=== PATIENT | female | born 1940 | race Caucasian/White ===

== ENCOUNTER 2018-04-19 09:17 | Inpatient (IN) | payer MEDICARE, OTHER ==
[2018-04-19] MEDS ORDERED: Pantoprazole 40 MG VIAL ONE (09:51)
[2018-04-19 09:54] LABS: #Lymphocytes 0.6 thou/uL (1.20-3.40); #Monocytes 1.2 thou/uL (0.11-0.59); #Neutrophils 10.1 thou/uL (1.40-6.50); %Basophils 0.4 % (0.0-1.0); %Eosinophils 0.2 % (0.0-10.0); %Lymphocytes 4.6 % (21.0-51.0); %Neutrophils 84.9 % (42.0-75.0); Hemoglobin 15.1 g/dL (12.0-16.0); Mean Corpuscular HGB CONC 33.6 g/dL (32.0-36.0); Mean Corpuscular Hemoglobin 31.7 pg (27.0-31.0); Mean Corpuscular Volume 94.5 fL (78.0-98.0); Mean Platelet Volume 8.1 fL (7.4-10.4); Platelet Count 234 thou/uL (130-400); RBC Distribution Width 12.2 % (11.5-14.5); Red Blood Cell (RBC) Count 4.77 mill/uL (4.20-5.40); White Blood Cell (WBC) Count 11.8 thou/uL (4.8-10.8)
[2018-04-19 09:56] LABS: PTT 25.2 SEC (22.9-36.1); Prothrombin Time 13.2 SEC (12.0-14.7)
--- NOTE | 2018-04-19 10:00 | RAD ---
CHEST 1 VIEW: HISTORY: Nausea and vomiting. Coffee grounds emesis. COMPARISON: CT of 11/09/2016. FINDINGS: Large sliding hiatal hernia. There is compressive atelectasis in the lingula. No pneumothorax. Sev ere degenerative change in the left shoulder. IMPRESSION: Chronic changes. No acute abnormality. POS: [facility]
[2018-04-19 10:12] LABS: ALT (SGPT) 12 U/L (8-55); AST (SGOT) 22 U/L (5-34); Albumin 4.4 g/dL (3.4-4.8); Alkaline Phosphatase 99 U/L (40-150); Anion Gap 18 mmol/L (10-20); BUN (Urea Nitrogen) 13 mg/dL (9.8-20.1); Bilirubin, Total 0.7 mg/dL (0.2-1.2); CK (CPK) 72 U/L (29-168); Calc. Creatinine Clearance 0 mL/min (70-130); Calcium 10.1 mg/dL (7.8-10.44); Carbon Dioxide 33 mmol/L (23-31); Chloride 92 mmol/L (98-107); Estimated GFR-MDRD 63; Globulin 3.1 g/dL (2.4-3.5); Glucose 126 mg/dL (83-110); Lipase 59 U/L (8-78); Protein, Total 7.5 g/dL (6.0-8.3); Sodium 140 mmol/L (136-145)
[2018-04-19 10:15] LABS: CKMB 1.9 ng/mL (0-6.6); Troponin I Less than 0.010 ng/mL (< 0.028)
[2018-04-19 10:16] LABS: Potassium 2.8 mmol/L (3.5-5.1)
[2018-04-19] MEDS ORDERED: Benzocaine 20% Spray 60 ML CAN ONE (10:39)
--- NOTE | 2018-04-19 11:25 | RAD ---
CHEST 1 VIEW: HISTORY: Chest pain. Nasogastric tube placement. COMPARISON: Earlier exam on the same dates. FINDINGS: Nasogastric tube at the lower mid mediastinum is likely within the large hiatal hernia. Findings are otherwise stable. POS: [facility]
[2018-04-19] MEDS ORDERED: Ondansetron ODT 4 MG TAB PO PRN (13:31)
[2018-04-19] MEDS ORDERED: Albuterol Sulfate 1.25 MG/3 ML NEB NEB PRN (13:36)
[2018-04-19] MEDS ORDERED: Potassium Chloride 40 MEQ in Premix Bag 1 BAG IVPB SCH (14:00)
[2018-04-19 14:44] VITALS: BMI 23.8
[2018-04-19] MEDS: Sodium Chloride 0.9% 1,000 ML IV SCH (16:00)
[2018-04-19] MEDS: Potassium Chloride 20 MEQ in Premix Bag 1 BAG IVPB SCH ×2 (16:01→22:22)
[2018-04-19] MEDS ORDERED: hydrALAZINE 20 MG/ML VIAL SLOW IVP PRN (17:49)
--- NOTE | 2018-04-19 21:00 | HP ---
CHIEF COMPLAINT: Vomiting. HISTORY OF PRESENT ILLNESS: The patient is a 77-year-old female who has apparently a known history o f a large hiatal hernia. The patient has had episodes in the past of intractable nausea and vomiting . She has been seen at the [facility] Emergency Room on several occasions and has not been give n much information regarding her situation. She subsequently went [facility] with one of these e pisodes a year and a half ago. At that time, she was diagnosed with a large hiatal hernia and reflux . She reports that she subsequently modified her diet substantially and was able to avoid this for t he last year and a half. She does report that she has had upper endoscopy at [facility] within the last year and nothing was found other than the large hiatal hernia. She has had surgery recommen ded for her; however, she is concerned that the surgery would not hold and that she would be back in the same situation again, therefore she has chosen not to have the surgery. On this occasion, the patient reports she was doing fine until yesterday early afternoon. She went t o [employer] and had some type of wyatt topping that she believes may have some citric acid in it. She bel ieves that might have triggered her episode because of her reflux. Regardless, she left there went t o [employer] and when she was leaving had a near syncopal episode and then started vomiting frequently. She finally made at home, but continued to have vomiting throughout the remainder of the day and thro ugh the night. Today, the symptoms actually got worse and eventually she started seeing some blood i n her emesis and she presented via the emergency department. She had an NG tube placed at that time. She has not had any vomiting since. She does report that she has had some generalized crampy abdom inal pain. She also reports chronic diarrhea. REVIEW OF SYSTEMS: Notable for the above-mentioned chronic diarrhea. She also has some hoarseness a nd weak voice associated with this particular episode, but she has not had it in the past. She also reports some chronic anosmia. PAST MEDICAL HISTORY: Notable for numerous allergies, summer drugs and some she describes as "chemic al allergies." She has osteoporosis, asthma, hypothyroidism, hyperlipidemia, and a history of the ab ove-mentioned hiatal hernia and reflux. She also has a history of colon polyps. PAST SURGICAL HISTORY: Colonic polypectomy, partial hysterectomy, cataractectomy, right lower extrem ity fracture, presumably ORIF, sinus procedure and a procedure on the coccyx which apparently was jen e type of calcification related to prior coccygeal fracture. FAMILY HISTORY: Father had a "colon tumor." Mother had CHF and emphysema. SOCIAL HISTORY: Patient denies alcohol, tobacco, or drugs. She is . She is a F[employer] and she has a living will that has identified a power of environmental attorney, which is not her son. CURRENT MEDICATIONS: Levothyroxine 75 mcg 1 p.o. daily, dipyridamole 75 mg every day, pentoxifylline 400 mg daily, prednisone 1 mg daily, omeprazole 20 mg every day, montelukast 10 mg daily, atorvastat in 20 mg every day, Nasonex 50 mcg every day, albuterol inhaler p.r.n., gabapentin 300 mg t.i.d., vit bryson D3 of 1000 mg every day, vitamin E 400 units every day, calcium with vitamin D. ALLERGIES: Include ASPIRIN, CODEINE, DARVON, ETHYLENEDIAMINE, IODINE, LANOLIN, NEOMYCIN, SULFA, TETR ACYCLINE and THIMEROSAL. PHYSICAL EXAMINATION: VITAL SIGNS: BP 162/86, pulse 100, respirations 24. She is afebrile. GENERAL APPEARANCE: Age appropriate female. She is in no distress. She does have some hoarseness a nd very a weak voice. She has an NG tube in place. HEENT: Pupils are equal and reactive. She has no OP lesions. LUNGS: Clear bilaterally. ABDOMEN: Soft, nontender, positive bowel sounds. EXTREMITIES: They are cool, but dry. Peripheral pulses are diminished. LABORATORY DATA: White blood cell count 11.8, hemoglobin 15.1, platelets 234. Coags are normal. So dium 140, potassium 2.8, chloride 92, CO2 of 33, BUN 13, creatinine 0.87, glucose 126, calcium 10.1. AST is 22, ALT is 12. Troponin less than 0.01. BNP 166.9, albumin 4.4, lipase 59. Stool for occul t blood is negative. Chest x-ray only reveals the large sliding hiatal hernia. ASSESSMENT AND PLAN: 1. Intractable nausea and vomiting. This appears to be a recurrent problem and appears to be relate d to her large sliding hiatal hernia likely producing some level of obstruction. The patient underst ands that surgery is the only way to resolve this, but she has not made the choice to pursue that as of yet. She had an NG tube placed and that continues with low wall suction and thus far has resolved her vomiting issue. 2. Hematemesis. The patient has hematemesis, but denies any melena or hematochezia and her Hemoccul t is negative. This appears as though it is related to her recurrent vomiting and may represent a sm all Armida-Whitmore tear or even some type of Greg's erosions. We will keep her on a PPI. GI has jose angel pacheco consulted. 3. Hypokalemia, likely secondary to vomiting. Potassium supplementation orders have been given to yohannes newsome ER nurse. 4. Elevated blood pressure. The patient does not carry a diagnosis of hypertension. We will contin ue to monitor and treat as needed. 5. Hypothyroidism. We will hold on her thyroid medications while she is n.p.o. 6. History of asthma. We will maintain p.r.n. nebulizer treatments as needed. 7. The patient will not have deep venous thrombosis prophylaxis at the moment because she has some e vidence of peripheral vascular disease with poor circulation and she has active bleeding.
[2018-04-19] MEDS: Pantoprazole 40 MG VIAL IVP SCH (22:13)
--- NOTE | 2018-04-20 00:16 | CON ---
DATE OF CONSULTATION: 04/19/2018 REFERRING PHYSICIAN: Dr. Hugo Schmitt, [facility]. REASON FOR CONSULTATION: Abdominal pain, nausea, and vomiting blood. HISTORY OF PRESENT ILLNESS: Ms. Charleen Villagomez is a very pleasant 77-year-old fragile-looking female hospitalized to the ER this afternoon. The patient came to the ER with abdominal pain, nausea, and vomiting. While in the ER, she had retching and she vomited 2 times fresh blood. She had a CBC done and surprisingly, she had a normal blood count. The CBC on admission to the ER was 11.1, hematocrit 45.1. She had an NG tube placed in the ER. The NG tube is draining some fresh blood, but not a whole lot of things coming out, and from the look of it, it appears she probably had little difficulty in putting NG tube. It was more traumatic than actual GI bleeding. The patient has had no black tarry stool. The patient's bowel movements are regular. She has loose stools and she has 1 or 2 stool every day. The patient apparently has had symptoms of abdominal pain, nausea, and vomiting and was seen in the ER in 04/2017. She had a CAT scan of abdomen and chest, which revealed a very large hiatus hernia and most of the upper part of stomach was in the chest. The patient apparently has seen Dr. Elton Denton in [facility] in [place]. She had an EGD done and was told to have large hiatus hernia and also esophagitis. She was placed on Prilosec. She was also advised about antireflux measures. It appeared that Dr. Denton recommended her to have surgery, but the patient did not want to have surgery. She had not seen a surgeon at that time. Apparently, the symptom has been going on off and on for several years. She tells me that since she has been on the Prilosec and all antireflux measures, she has had no nausea or vomiting. She did see Dr. Raj Mock, who is her regular family doctor yesterday for . However, this morning, she developed abdominal pain, which was in the epigastric area with retching, nausea, and vomiting. Apparently, she vomited 3 times. The first vomiting did not have any blood. The second vomiting in the ER had some blood. The patient at the present time appears very comfortable. She is in no acute distress. The patient has epigastric abdominal discomfort since this morning. The pain is [id number]. She has no history of dysphagia or odynophagia. She has had a colonoscopy in [address] Denton for cancer screening. Apparently, her father had colon cancer and she had an EGD in 2017, at the same time, she had a colonoscopy which was told to be negative. She has no relevant history. ALLERGIES: Multiple and include ASPIRIN, CODEINE, IODINE, LANOLIN, NEOMYCIN, ETHYLENEDIAMINE. SOCIAL HISTORY: The patient lives with her disabled son. She does not smoke or drink alcohol. MEDICAL ILLNESSES: 1. Hypothyroidism. 2. Osteoporosis. 3. Allergic rhinitis. 4. Hiatus hernia. 5. Acid reflux. MEDICATIONS: List reviewed. FAMILY HISTORY: Father had colon cancer. REVIEW OF SYSTEMS: Ten-point system reviewed. Constitutional: No history of fever, no night sweats. Has good appetite and good energy level. No history of any weight loss. HEENT: Vision is good and hearing is good. No epistaxis. Throat, no sore throat or any painful swallowing. Respiratory System: No history of chronic cough, hemoptysis, dyspnea. Cardiovascular System: No chest pain or palpitation. No exertional dyspnea, orthopnea, or PND. Gastrointestinal: History of hiatus hernia and acid reflux. History of nausea and vomiting off and on. She is also having loose stools. Genitourinary: No dysuria, hematuria. Musculoskeletal: Unremarkable. Endocrine: Unremarkable. Hematologic: Unremarkable. SURGERIES: 1. Partial hysterectomy. 2. History of fractured right leg with some surgery in the past. PHYSICAL EXAMINATION: GENERAL: This is a very thin built, very pleasant, female who appears very comfortable. She is in no distress. VITAL SIGNS: Afebrile, pulse is 84, blood pressure 182/85. HEENT: Conjunctivae clear. NECK: Supple. No adenitis or thyromegaly noted. CARDIOVASCULAR SYSTEM: First and second heart sounds normal. LUNGS: Clear to auscultation. ABDOMEN: Abdomen is soft to palpate. Abdomen is nondistended. Abdomen is flat. Abdomen exam shows mild tenderness over the epigastric area. There is no rebound or guarding. No masses. No organomegaly. EXTREMITIES: Revealed no edema. LABORATORY DATA: Shows normal CBC. WBC 11,800, hemoglobin is 15.1, hematocrit 42.1, MCV 94.5, platelet count is 234,000, polymorphs 84, lymphocytes 4, monocytes 10. Serum chemistries: Sodium is 140, potassium 2.8, chloride 192, bicarbonate 33, BUN is 13, creatinine 0.87, glucose 126, calcium 10.1, bilirubin 0.7, AST 22, ALT 12, alkaline phosphatase 99, creatine kinase is 72. CPK-MB 1.9, BNP 166.9, albumin is 4.4. CLINICAL IMPRESSION: 1. A 77-year-old female with abdominal pain, retching, nausea, and vomiting. She had vomited small amount of blood. She has normal CBC. She has had history of hiatus hernia with similar episodes of abdominal pain, nausea, and vomiting. She has a very large hiatus hernia on CAT scan in 2017 and she does not want to have surgery. The patient most likely has gastric volvulus, which could happen in large hiatus hernia. At the present time, her abdomen is benign. There is no rebound or guarding. 2. Hypokalemia. 3. Hypothyroidism. 4. Chronic acid reflux. 5. Osteoporosis. 6. Allergic rhinitis. RECOMMENDATIONS: 1. The NG tube is really not draining very much fluid and the blood appears to be most likely from the NG tube insertion for bleeding. Recommend discontinue NG tube. 2. Keep her n.p.o. 3. Follow up H&H. 4. Correction of hypokalemia with potassium supplement. 5. EGD tomorrow morning. I did talk to Leona Arcealyssa and she has agreed for the procedure. I will make further recommendations after EGD. [facility]
[2018-04-20 05:19] LABS: #Lymphocytes 0.7 thou/uL (1.20-3.40); #Monocytes 1.6 thou/uL (0.11-0.59); #Neutrophils 9.9 thou/uL (1.40-6.50); %Basophils 0.1 % (0.0-1.0); %Lymphocytes 5.6 % (21.0-51.0); %Monocytes 13.3 % (0.0-10.0); Hemoglobin 14.2 g/dL (12.0-16.0); Mean Corpuscular HGB CONC 32.5 g/dL (32.0-36.0); Mean Corpuscular Hemoglobin 30.8 pg (27.0-31.0); Mean Corpuscular Volume 94.8 fL (78.0-98.0); Mean Platelet Volume 8.1 fL (7.4-10.4); Platelet Count 227 thou/uL (130-400); RBC Distribution Width 12.3 % (11.5-14.5); Red Blood Cell (RBC) Count 4.61 mill/uL (4.20-5.40); White Blood Cell (WBC) Count 12.3 thou/uL (4.8-10.8)
[2018-04-20 05:33] LABS: Anion Gap 15 mmol/L (10-20); BUN (Urea Nitrogen) 15 mg/dL (9.8-20.1); Calc. Creatinine Clearance 61 mL/min (70-130); Calcium 9.6 mg/dL (7.8-10.44); Carbon Dioxide 31 mmol/L (23-31); Chloride 96 mmol/L (98-107); Estimated GFR-MDRD 70; Glucose 132 mg/dL (83-110); Potassium 3.6 mmol/L (3.5-5.1); Sodium 138 mmol/L (136-145)
[2018-04-20] MEDS ORDERED: Ketamine 50 MG/ML VIAL ONE (07:34)
[2018-04-20] MEDS ORDERED: Ondansetron HCl/PF 4 MG/2 ML Vial IVP PRN (07:44)
[2018-04-20] MEDS: Pantoprazole 40 MG VIAL IVP SCH ×2 (09:34→21:24)
[2018-04-20] MEDS: Sodium Chloride 0.9% 1,000 ML IV SCH ×2 (09:35→21:25)
[2018-04-20] MEDS: Potassium Chloride 20 MEQ TAB PO SCH ×3 (09:35→18:01)
--- NOTE | 2018-04-20 13:18 | PDOC.PN ---
- Subjective Encounter Start Date: 04/20/18 Encounter Start Time: 10:40 Says she is not quite sure yet how she feels. Tolerated the scope well. - Objective Resuscitation Status: Resuscitation Status FULL:Full Resuscitation Vital Signs & Weight: Vital Signs (12 hours) Temp Pulse Resp BP Pulse Ox 04/20/18 11:29 99.2 F 78 16 174/76 H 93 L 04/20/18 07:15 94 L 04/20/18 07:14 98.5 F 89 16 165/83 H 94 L 04/20/18 04:20 99.5 F 100 18 159/77 H 95 Weight Weight 144 lb 6.4 oz I&O: 04/19/18 04/20/18 04/21/18 06:59 06:59 06:59 Intake Total 900 Output Total 700 Balance 200 Result Diagrams: 04/20/18 04:34 04/20/18 04:35 Phys Exam - Physical Examination Constitutional: NAD Respiratory: no wheezing, no rales, no rhonchi, clear to auscultation bilateral Cardiovascular: RRR, no significant murmur, no rub Gastrointestinal: soft, non-tender, no distention, positive bowel sounds Musculoskeletal: no edema Dx/Plan (1) Nausea & vomiting Code(s): R11.2 - NAUSEA WITH VOMITING, UNSPECIFIED Status: Acute Comment: Improved. likely related to the large HH with obstruction/volvulus. NGT out. Symptoms appear to be resolved. (2) Hernia, hiatal Code(s): K44.9 - DIAPHRAGMATIC HERNIA WITHOUT OBSTRUCTION OR GANGRENE Status: Acute Comment: Large HH with likely obstruction/volvulus. Discussed with GI. We agree that she needs surgery. She has been reluctant. Continue PPI. (3) Leukocytosis Code(s): D72.829 - ELEVATED WHITE BLOOD CELL COUNT, UNSPECIFIED Status: Acute Comment: Reactive. No evidence of infection. (4) Hematemesis Code(s): K92.0 - HEMATEMESIS Status: Acute Comment: Possible due to inflammatory changes of esophagus/stomach. Appears resolved. (5) Esophagitis Code(s): K20.9 - ESOPHAGITIS, UNSPECIFIED Status: Acute Comment: PPI (6) Hypokalemia Code(s): E87.6 - HYPOKALEMIA Status: Acute Comment: Resolved. (7) Hypothyroid Code(s): E03.9 - HYPOTHYROIDISM, UNSPECIFIED Status: Acute Comment: Continue home meds. (8) Asthma Code(s): J45.909 - UNSPECIFIED ASTHMA, UNCOMPLICATED Status: Acute Comment: Stable. PRN nebs/inh. - Plan * She needs surgical repair of the HH. She has been reluctant. Sounds like her biggest concern is that she has a son that lives with her who is disabled. He can care for himself, but not her if she were to have surgery. Discussed options of SNF/rehab. Will discuss with GI regarding endoscopy results.
[2018-04-20] MEDS ORDERED: Potassium Chloride 20 MEQ in Premix Bag 1 BAG IVPB SCH (14:00)
[2018-04-20] MEDS ORDERED: PROPOFOL 200 MG/20 ML VIAL ONE (14:32)
[2018-04-20] MEDS ORDERED: Lidocaine 1% PF 5 ML VIAL ONE (14:32)
--- NOTE | 2018-04-20 17:38 | OP ---
DATE OF PROCEDURE: 04/20/2018 OPERATIVE PROCEDURE: Esophagogastroduodenoscopy with biopsy. PREOPERATIVE DIAGNOSES: A 77-year-old female with hematemesis, abdominal pain, nausea, and vomiting. The patient has a history of hiatus hernia. The patient unable to eat. POSTOPERATIVE DIAGNOSES: 1. Severe erosive esophagitis, Holland grade 4 distal esophagus. 2. Large amount of gas retention during the procedure with 1400 mL of dark greenish to brown fluid aspirated. 3. Large paraesophageal hiatus hernia, gastric volvulus. DESCRIPTION OF PROCEDURE: The patient was placed on the left lateral position and was given sedation by Anesthesia Department. A Pentax video gastroscope under direct vision was passed down the oropharynx, past the GE junction, into the stomach. Over the distal esophagus, the patient found to have severe diffuse ulcerative esophagitis. The mucosa was friable. Upon entering the stomach, the patient found to have a large amount of gas retention. 1400 mL of dark brownish to green fluid suctioned. The patient had multiple ulcers over the proximal stomach with some blackish eschar. No active bleeding seen. It was very difficult to locate the pyloric opening. . After the fluid was suctioned out, the stomach was emptied out. It took a long time to look at the pyloric opening. I was able to get into the duodenum and descending duodenum. The stomach was decompressed and the scope removed. Biopsy obtained from the distal esophagus. RECOMMENDATIONS: 1. Clear liquid diet. 2. Protonix 40 mg twice a day. 3. Surgical consult for possible fundoplication as she has a large paraesophageal hiatus hernia - gastric volvulus. [facility]
[2018-04-20] MEDS ORDERED: Acetaminophen 325 MG TAB PO PRN (17:50)
[2018-04-21 05:09] LABS: Anion Gap 10 mmol/L (10-20); BUN (Urea Nitrogen) 15 mg/dL (9.8-20.1); Calc. Creatinine Clearance 72 mL/min (70-130); Calcium 8.2 mg/dL (7.8-10.44); Carbon Dioxide 25 mmol/L (23-31); Chloride 106 mmol/L (98-107); Estimated GFR-MDRD 83; Glucose 91 mg/dL (83-110); Potassium 4.3 mmol/L (3.5-5.1); Sodium 137 mmol/L (136-145)
[2018-04-21 05:27] LABS: Eosinophils 1 % (0-10); Lymphocytes 21 % (21-51); MDiff Complete? YES; Mean Corpuscular HGB CONC 32.9 g/dL (32.0-36.0); Mean Corpuscular Hemoglobin 31.7 pg (27.0-31.0); Mean Corpuscular Volume 96.4 fL (78.0-98.0); Monocytes 12 % (0-10); Neutrophil 66 % (42-75); Nucleated RBC 1 % (0); PLT Morphology Comment Appears Adequate; Platelet Count 186 thou/uL (130-400); RBC Distribution Width 12.4 % (11.5-14.5); RBC Morphology Normal; Red Blood Cell (RBC) Count 3.77 mill/uL (4.20-5.40); White Blood Cell (WBC) Count 7.9 thou/uL (4.8-10.8)
[2018-04-21] MEDS: Pantoprazole 40 MG VIAL IVP SCH ×2 (08:25→20:26)
[2018-04-21] MEDS: Sodium Chloride 0.9% 1,000 ML IV SCH (11:47)
--- NOTE | 2018-04-21 14:28 | CON ---
DATE OF CONSULTATION: 04/21/2018 REQUESTING PHYSICIAN: Franklyn Soliz M.D. REASON FOR CONSULTATION: Atrial fibrillation. CONSULTING PHYSICIAN: Kell Harding M.D. HISTORY OF PRESENT ILLNESS: Ms. Villagomez is a very pleasant 77-year-old woman who presented to the em ergency room with intractable nausea and vomiting. She has a substantial history of gastroesophageal reflux disease and a very large hiatal hernia. This has largely been controlled with strict diet mo difications. She recently went out to eat and ate food that she usually does not eat and which she f eels contributes contributing greatly to her episodes. She had been vomiting blood, dark black vomit and since being admitted she has had brief episodes of very rapid atrial fibrillation with ventricul ar rates as high as 300 beats per minute. She denies any history of abnormal heart rhythms or atrial fibrillation. She did not have any symptoms of heart racing, palpitations, chest pain, pressure, sy ncope, near syncope, stroke or stroke like symptoms. Her GI complaints have subsided greatly and she is scheduled for an upper endoscopy study later today. She does have chronic diarrhea issues. REVIEW OF SYSTEMS: A 12 point review of systems was conducted and is negative except chronic diarrhe a and mild nausea. PAST MEDICAL HISTORY: 1. Gastroesophageal reflux disease. 2. Mild asthma. 3. Hypothyroidism. 4. Hyperlipidemia. 5. Hiatal hernia. 6. Seasonal allergies. PAST SURGICAL HISTORY: Colon polyp removal, partial hysterectomy, ____, right lower extremity fractu re, possibly an ORIF. FAMILY HISTORY: Father had a colon tumor. Mother had congestive heart failure and emphysema. SOCIAL HISTORY: Negative for alcohol, tobacco or drugs. She is . CODE STATUS: Full code. HOME MEDICATIONS: Levothyroxine 75 mcg daily, dipyramidal 75 mg daily, pentoxifylline 400 mg daily, prednisone 1 mg daily, omeprazole 20 mg daily, montelukast 10 mg daily, atorvastatin 20 mg daily, Ricky onex daily, albuterol as needed, gabapentin 300 mg p.o. t.i.d., vitamin D3 every other day, vitamin E 400 units daily and vitamin D with calcium daily. ALLERGIES: ASPIRIN, CODEINE, ____, IODINE, LANOLIN, NEOMYCIN, SULFA, TETRACYCLINE and FAMERISOL. PHYSICAL EXAMINATION: VITAL SIGNS: Most recent vital signs are 98.4, pulse 65, blood pressure 152/67, respirations 16, oxy gen is 95% on room air. GENERAL: This is a well-groomed, well-nourished woman in no apparent distress. She is alert and robe ented. Her speech is clear. Affect is appropriate. She appears to be a good historian. HEENT: She is normocephalic, atraumatic. Sclerae are anicteric. NECK: Supple, without jugular venous distention. There is none palpable. LUNGS: Clear to auscultation bilaterally without wheezes, crackles or rhonchi. HEART: Her heart rate is regularly irregular with a crisp S1, S2. PMI is nondisplaced. EXTREMITIES: Warm and dry to touch. No clubbing, cyanosis or edema. ABDOMEN: She has positive bowel sounds throughout. NEURO: There are no focal deficits. Overall exam of cranial nerves II-XII is intact. Gait was not assessed. DATABASE: EKG and telemetry strips were all personally reviewed and revealed largely normal sinus rh ythm. There were occasional episodes of atrial fibrillation with RVR, which can get very rapid with ventricular rates between 275 and 300 beats per minute. There is no evidence of an accessory pathway . Echocardiogram on 04/20/2018 reveals ejection fraction estimated at 50-55%, mildly dilated left atriu m. Left ventricle size is normal. Mild to moderate MR, mild AR, mild TR. LABORATORY: Hematology is reviewed and is unremarkable. Chemistry: Sodium 137, potassium 4.3, BUN is 15, creatinine 0.69, calcium is 8.2, magnesium 2.1. TSH 0.4025. IMPRESSION: 1. Newly diagnosed paroxysmal atrial fibrillation with rapid ventricular response. 2. Nausea and vomiting. 3. Hiatal hernia. 4. Hematemesis. 5. CHADS VASc score of 2 on the basis of advancing age and female gender. Questionably as high as 3 if diagnosed with hypertension. Her blood pressures have been somewhat elevated, though she denies carrying a diagnosis of hypertension. RECOMMENDATIONS: Discussion was had with Ms. Villagomez regarding atrial arrhythmias in the settings th at we often see them. Given the acute GI bleed and nausea and vomiting she is experiencing is likely those are just provoking factors for her atrial fibrillation. Our hope is that as her acute issues subside, so will her atrial fibrillation. We discussed that with her acute bleeding issues oral anti coagulation is not a safe option at this time. For now, we recommend continued monitoring. Her atri al fibrillation episodes are very brief. There is no evidence of preexcitation or accessory pathway or additional arrhythmias. We recommend her following up in our clinic in 1 month and then have her wear a monitor for 1 month's time. We will assess for any further burden of atrial fibrillation and assess her need for anticoagulation once her acute issues have resolved. Thank you for allowing us to participate in the care of this patient.
--- NOTE | 2018-04-21 15:45 | CON ---
DATE OF CONSULTATION: 04/21/2018 HISTORY OF PRESENT ILLNESS: The patient is a 77-year-old woman with a no known cardiac history, who was admitted with a GI hemorrhage and developed a rapid tachycardia. The patient reports that she does have a history of palpitations. She states the it is usual brief duration. The patient also has a history of having multiple falls. She apparently has difficulty with standing and becomes lightheaded and at times has lost consciousness. The patient was admitted with a GI hemorrhage. She was noted to develop a very rapid heart rate. The patient reported having palpitations. The patient denied having any chest discomfort. PAST MEDICAL HISTORY: 1. GE reflux. 2. Dyslipidemia. 3. Asthma. 4. Osteoporosis. PAST SURGICAL HISTORY: Polypectomy, hysterectomy, cataract surgery, right leg surgery. SOCIAL HISTORY: Nonsmoker. FAMILY HISTORY: Positive family history of coronary artery disease. MEDICATIONS: See nursing list. ALLERGIES: ASPIRIN, CODEINE, DARVON, IODINE, LANOLIN, NEOMYCIN, SULFA, and TETRACYCLINE. PHYSICAL EXAMINATION: GENERAL/VITAL SIGNS: This is a thin, pale woman, in no acute distress with a blood pressure 174/76. NECK: Showed no jugular venous distention. LUNGS: Clear to auscultation. HEART: Regular rate and rhythm, normal S1, S2, no murmurs. ABDOMEN: Nondistended. EXTREMITIES: Show no edema. VASCULAR: Radial pulses are 2+. LABORATORY RESULTS: Sodium is 138, potassium 3.6, chloride 96, bicarbonate 31, BUN 15, creatinine 0.8, glucose 132. BNP 166. White blood cell count 12.3, hemoglobin 14.2, hematocrit 43.7, Her EKG revealed her to have normal sinus rhythm with occasional PACs. Her telemetry monitoring revealed a rapid irregular heart rhythm most likely atrial fibrillation possibly aberrant conduction. IMPRESSION: 1. Rapid narrow complex tachycardia suggestive of atrial fibrillation with accessory conduction. 2. Gastrointestinal hemorrhage. 3. Asthma. 4. History with probable orthostatic hypotension. 5. Dyslipidemia. This woman presents with a rapid tachycardia, which may be rapid atrial fibrillation. We will ask EP to evaluate. We will check the patient's echocardiogram during this hospitalization. We will follow with you and further recommendation will follow. OWEN
--- NOTE | 2018-04-21 16:13 | RAD ---
UPPER GI: INDICATIONS: Upper GI bleed. TECHNIQUE: Air contrast upper GI performed. FINDINGS: The swallowing mechanism is intact. The esophagus is unremarkable, above the EG junction. There are tertiary contractions in the distal esophagus. There is a sliding diaphragmatic hernia present, wit h mucosal irregularity at the EG junction, which would be better assessed by endoscopy. There is no evidence of luminal stricture. When the patient is placed recumbent, spontaneous GE reflux is demonstrated. There is elevation of the left hemidiaphragm, with the fundus of the stomach elevated in the left upp er quadrant, under this diaphragm. The gastric fundus has a slightly unusual configuration, although I do not confirm a gastric volvulus. The gastric mucosal pattern appears unremarkable. The duodenu m appears unremarkable. The proximal jejunal loops appear unremarkable. IMPRESSION: 1. Sliding diaphragmatic hernia. Mucosal irregularity at the esophagogastric junction. 2. Elevated left hemidiaphragm. The gastric fundus is elevated in the left upper quadrant, under th is diaphragm, resulting in an abnormal configuration and appearance; however, the gastric mucosal pat tern appears unremarkable with no mass or ulceration identified. POS: [facility]
--- NOTE | 2018-04-21 18:27 | PDOC.PN ---
- Subjective Encounter Start Date: 04/21/18 Encounter Start Time: 18:25 - Objective Resuscitation Status: Resuscitation Status FULL:Full Resuscitation MAR Reviewed: Yes Vital Signs & Weight: Vital Signs (12 hours) Temp Pulse Resp BP Pulse Ox 04/21/18 15:14 98.2 F 63 16 158/69 H 95 04/21/18 11:48 98.4 F 65 16 152/67 H 95 04/21/18 07:38 98.2 F 77 16 163/73 H 93 L Weight Weight 137 lb 12.8 oz I&O: 04/20/18 04/21/18 04/22/18 06:59 06:59 06:59 Intake Total 900 1140 1110 Output Total 700 725 Balance 200 1140 385 Result Diagrams: 04/21/18 04:33 04/21/18 04:33 Phys Exam - Physical Examination HEENT: PERRLA, sclera anicteric Respiratory: no wheezing, no rales, no rhonchi, clear to auscultation bilateral Cardiovascular: RRR, no significant murmur, no rub Gastrointestinal: soft, non-tender, positive bowel sounds + mildly distended Musculoskeletal: no edema, pulses present Psychiatric: normal affect, A&O x 3 Dx/Plan (1) Sliding hiatal hernia Code(s): K44.9 - DIAPHRAGMATIC HERNIA WITHOUT OBSTRUCTION OR GANGRENE Status: Chronic (2) Atrial fibrillation Code(s): I48.91 - UNSPECIFIED ATRIAL FIBRILLATION Status: Acute (3) Hypertension Code(s): I10 - ESSENTIAL (PRIMARY) HYPERTENSION Status: Acute (4) Hypothyroid Code(s): E03.9 - HYPOTHYROIDISM, UNSPECIFIED Status: Acute Comment: Continue home meds. - Plan * Sliding Hiatal Hernia- discussed with the patient in dept, and she would like to pursue surgery if she is a candidate for this * Will consult General Surgery * Atrial Fibrillation- she has converted to sinus- and EP evaluation was noted- will hold off on anticoagulation, and she may need event monitor after the GI problems have resolved * Hypothyroidism- her TSH is normal- will continue her usual Levothyroxine * HTN- will add PRN hydralazine for Blood pressure.
[2018-04-21] MEDS ORDERED: hydrALAZINE 10 MG TAB PO PRN (18:33)
--- NOTE | 2018-04-21 20:02 | PRG ---
DATE OF SERVICE: 04/21/2018 SUBJECTIVE: This is a 77-year-old female hospitalized with abdominal pain, nausea, vomiting, and hematemesis. She had an EGD done yesterday morning , which revealed a very large hiatus hernia and findings of what appeared to be gastric volvulus. She had 1400 mL of fluid in the stomach, which was suctioned out. Initially, the pylorus was difficult to visualize, but after maneuvering for nearly about 20-30 minutes, I was able to get into the duodenum. There is no pyloric obstruction seen. She had multiple gastric ulcers in proximal stomach and also had esophagitis. The patient has been on a clear liquid diet and she is tolerating clear liquid diet without any abdominal pain, nausea, or vomiting. She had an upper GI series done today. The GI series showed hiatus hernia, elevated left hemidiaphragm, irregular gastric mucosa over the fundus and cardia. There is no pyloric obstruction seen. The contrast does flow freely into the duodenum. PHYSICAL EXAMINATION: GENERAL: Appears comfortable. She is awake, alert, communicative, in no distress. VITAL SIGNS: Stable. Temperature 98.2 degrees Fahrenheit, pulse 63, blood pressure is 158/69. CARDIOVASCULAR SYSTEM: First and second heart sounds are normal. LUNGS: Clear to auscultation. ABDOMEN: Soft. Abdomen is nontender. There is no organomegaly or masses. EXTREMITIES: No edema. The patient will be seen by Cardiology because of the tachycardia noted during the procedure yesterday. She had been seen by EP cosmetic sales consultant. RECOMMENDATIONS: 1. Advance diet to regular diet. 2. Continue PPI. 3. I did speak to Ms. Villagomez about having a fundoplication for recurrent volvulus. She is agreeable. However, she needs some cardiac evaluation before her surgery. I will plan to call a general surgeon tomorrow for further evaluation. From a GI standpoint, she can be discharged home and she can have a surgery as outpatient after cardiac workup is complete. [facility]
[2018-04-21] MEDS: Atorvastatin Calcium 20 MG TAB PO SCH (20:29)
[2018-04-21] MEDS: Montelukast Sodium 10 mg Tablet PO SCH (20:29)
[2018-04-22] MEDS: Sodium Chloride 0.9% 1,000 ML IV SCH ×2 (02:05→19:21)
[2018-04-22] MEDS: Levothyroxine Sodium 75 MCG TAB PO SCH (05:47)
[2018-04-22] MEDS: Pantoprazole 40 MG VIAL IVP SCH ×2 (08:58→21:16)
[2018-04-22 10:57] LABS: Anion Gap 10 mmol/L (10-20); BUN (Urea Nitrogen) 11 mg/dL (9.8-20.1); Calc. Creatinine Clearance 69 mL/min (70-130); Calcium 8.3 mg/dL (7.8-10.44); Carbon Dioxide 23 mmol/L (23-31); Chloride 105 mmol/L (98-107); Estimated GFR-MDRD 81; Glucose 86 mg/dL (83-110); Potassium 3.5 mmol/L (3.5-5.1); Sodium 134 mmol/L (136-145)
--- NOTE | 2018-04-22 11:53 | PDOC.PN ---
- Subjective Encounter Start Date: 04/22/18 Encounter Start Time: 11:51 Ms. Villagomez was seen today in follow-up of severe Sliding hiatal Hernia. She is feeling ok today. She denies and nausea or vomiting. - Objective Resuscitation Status: Resuscitation Status FULL:Full Resuscitation MAR Reviewed: Yes Vital Signs & Weight: Vital Signs (12 hours) Temp Pulse Resp BP Pulse Ox 04/22/18 08:17 98.9 F 65 16 139/60 94 L 04/22/18 04:00 98.8 F 64 17 147/67 H 92 L Weight Weight 141 lb I&O: 04/21/18 04/22/18 04/23/18 06:59 06:59 06:59 Intake Total 1140 2130 Output Total 1525 Balance 1140 605 Result Diagrams: 04/21/18 04:33 04/22/18 10:12 Phys Exam - Physical Examination HEENT: PERRLA Respiratory: no wheezing, no rales, no rhonchi, clear to auscultation bilateral Cardiovascular: RRR, no significant murmur, no rub no gallop Gastrointestinal: soft, non-tender, no distention, positive bowel sounds Musculoskeletal: no edema Dx/Plan (1) Sliding hiatal hernia Code(s): K44.9 - DIAPHRAGMATIC HERNIA WITHOUT OBSTRUCTION OR GANGRENE Status: Chronic (2) Atrial fibrillation Code(s): I48.91 - UNSPECIFIED ATRIAL FIBRILLATION Status: Acute (3) Hypertension Code(s): I10 - ESSENTIAL (PRIMARY) HYPERTENSION Status: Acute (4) Hypothyroid Code(s): E03.9 - HYPOTHYROIDISM, UNSPECIFIED Status: Acute Comment: Continue home meds. - Plan * Sliding Hiatal Hernia- Surgical Evaluation is in progress * AFIB- her heart rate has been stable today * HTN- blood pressure is stable. * Hypothyroid- clinically stable
--- NOTE | 2018-04-22 14:45 | PRG ---
DATE OF SERVICE: 04/22/2018 HISTORY OF PRESENT ILLNESS: Mr. Charleen Villagomez is a 77-year-old hospitalized with abdominal pain, nausea, and vomiting, and hematemesis. She had a large hiatus hernia from before. The patient had gastric volvulus and endoscopy. She had large amount of gas retention with 1400 mL of fluid aspirated. Also on endoscopy, it appears that the volvulus is resolved. The upper GI series done showed hiatus hernia, but no gastric volvulus and the contrast did pass in to the small bowel without any difficulty. The patient has been on regular diet from yesterday. She is tolerating diet well. There is no nausea, vomiting, or abdominal pain. She is back in sinus rhythm. . She is asymptomatic. She has been seen by Dr. Marcio Moyer for possible laparoscopic fundoplication. She offers no complaints. PHYSICAL EXAMINATION: GENERAL: Appears comfortable, afebrile. Pulse is 65, blood pressure 113/60. CARDIOVASCULAR: First and second heart sounds are normal. LUNGS: Clear to auscultation. ABDOMEN: Soft to palpate. Abdomen is nondistended. Abdomen is nontender. There is no organomegaly. No masses. CLINICAL IMPRESSION: 1. Gastrointestinal bleeding -- EGD showing gastric ulcers and erosive esophagitis. 2. Gastric volvulus, resolved. 3. Large hiatal hernia. RECOMMENDATIONS: 1. Continue PPI. 2. Surgical input and it is possible she will have fundoplication before discharge. [facility]
[2018-04-22] MEDS: Atorvastatin Calcium 20 MG TAB PO SCH (21:16)
[2018-04-22] MEDS: Montelukast Sodium 10 mg Tablet PO SCH (21:16)
[2018-04-23] MEDS: Sodium Chloride 0.9% 1,000 ML IV SCH (02:10)
[2018-04-23] MEDS: Levothyroxine Sodium 75 MCG TAB PO SCH (05:34)
--- NOTE | 2018-04-23 08:36 | CON ---
DATE OF CONSULTATION: 04/22/2018 CHIEF COMPLAINT: Hiatal hernia. HISTORY OF PRESENT ILLNESS: This is a 77-year-old female, who presents with hematemesis, barium stud y revealed evidence of a sliding hiatal hernia. She underwent EGD by Dr. Fragoso, which reveals a large hiatal hernia with organoaxial volvulus, not completely obstructing. The patient has now had h er diet advanced and is tolerating that without difficulty. She has had no more vomiting. She has n o abdominal pain, no prior known history of hiatal hernia. She denies frequent regurgitation; joseeve r, she notes chronic early satiety. She is a nonsmoker. Because of her early ascites, she states th at she has lost some weight within the last few months. She lives independently and ambulates withou t difficulty normally, has a history of some coronary artery disease, but has not had a stress test f or a few years. She is in a telemetry bed secondary to a period of tachycardia. PAST MEDICAL HISTORY: Osteoporosis, asthma, hypothyroidism, hyperlipidemia, GERD. PAST SURGICAL HISTORY: Includes hysterectomy, cataract, ORIF of right leg, polypectomy, and colonosc opy. MEDICINES TAKEN DAILY: See list. ALLERGIES: Multiple including ASPIRIN, CODEINE, DARVON, IODINE, NEOMYCIN, SULFA, TETRACYCLINE, THIME ALIVIA. SOCIAL HISTORY: No smoking, alcohol, or other drugs. She is . GI HISTORY: Noncontributory to GI malignancy. REVIEW OF SYSTEMS: Ten system review of systems is, otherwise, negative unless described above. PHYSICAL EXAMINATION: VITAL SIGNS: Blood pressure 144/65, pulse 70, respirations 14. She is afebrile. HEENT: Sclerae are anicteric. Oropharynx clear. NECK: No lymphadenopathy. CHEST: Clear. HEART: Regular rate and rhythm. ABDOMEN: Soft, nontender, nondistended. EXTREMITIES: No ischemia or edema to extremities. LABORATORY DATA: Sodium 134, creatinine 0.7. ASSESSMENT: Hiatal hernia with organoaxial volvulus, intermittent. PLAN: We would recommend repair. She is likely to go on to complete obstruction, and with the volvu shaquille, she runs a risk of ischemia. Procedure would be done laparoscopic. She would require placement of a feeding G-tube at the time of surgery, both for potential for feeds if she is not able to swall ow well right after surgery as well as to anchor the stomach in the abdomen chronically. I would pre lakisha she get cardiac clearance during this hospitalization for that procedure. Then can set her up to come back and do it electively. We will follow with you.
[2018-04-23] MEDS: Pantoprazole 40 MG VIAL IVP SCH (09:15)
[2018-04-23] MEDS ORDERED: Lorazepam 0.5 MG TAB PO PRN (09:29)
[2018-04-23 11:25] VITALS: BP 125/57; TEMP 98.6
--- NOTE | 2018-04-23 11:48 | PDOC.PN ---
- Subjective Encounter Start Date: 04/23/18 Encounter Start Time: 11:45 Ms. Villagomez was seen today in follow-up of severe hiatal hernia. She has been able to tolerate a solid diet. - Objective Resuscitation Status: Resuscitation Status FULL:Full Resuscitation MAR Reviewed: Yes Vital Signs & Weight: Vital Signs (12 hours) Temp Pulse Resp BP Pulse Ox 04/23/18 11:24 98.6 F 66 14 125/57 L 92 L 04/23/18 07:56 98.2 F 59 L 14 143/64 H 94 L 04/23/18 03:20 99.1 F 70 14 144/65 H 95 Weight Weight 140 lb I&O: 04/22/18 04/23/18 04/24/18 06:59 06:59 06:59 Intake Total 2130 4125 Output Total 1525 1100 Balance 605 3025 Result Diagrams: 04/21/18 04:33 04/22/18 10:12 Phys Exam - Physical Examination HEENT: PERRLA Respiratory: no wheezing, no rales, no rhonchi, clear to auscultation bilateral Cardiovascular: RRR, no significant murmur, no rub Gastrointestinal: soft, non-tender, no distention, positive bowel sounds Musculoskeletal: no edema Dx/Plan (1) Sliding hiatal hernia Code(s): K44.9 - DIAPHRAGMATIC HERNIA WITHOUT OBSTRUCTION OR GANGRENE Status: Chronic (2) Atrial fibrillation Code(s): I48.91 - UNSPECIFIED ATRIAL FIBRILLATION Status: Acute (3) Hypertension Code(s): I10 - ESSENTIAL (PRIMARY) HYPERTENSION Status: Acute (4) Hypothyroid Code(s): E03.9 - HYPOTHYROIDISM, UNSPECIFIED Status: Acute Comment: Continue home meds. - Plan * Sliding Hiatal Hernia with severe reflux symptoms- improved * AFIB- her heart rate has been stable * She can be discharged home today with outpatient Cardiac Clearance for Anticipated Surgery to repair Hiatal Hernia.
--- NOTE | 2018-04-23 12:25 | DIS ---
PRIMARY CARE PHYSICIAN: Dr. Raj Mock DATE OF ADMISSION: 04/19/2018 DATE OF DISCHARGE: 04/23/2018 DISCHARGE DISPOSITION: Home. PRIMARY DISCHARGE DIAGNOSES: 1. Severe sliding hiatal hernia. 2. Hematemesis. 3. Hypokalemia which has resolved. 4. Hypothyroidism. PROCEDURES DONE DURING ADMISSION: The patient had an upper endoscopy with biopsy which showed severe erosive gastritis, a large paraesophageal hiatal hernia with a gastric volvulus. The patient had an echocardiogram showing an EF of 50-55%. There was a mildly dilated left atrium and mild to moderate mitral regurgitation. The patient also had an upper GI series showing a sliding diaphragmatic herni a. There was some elevation of the left hemidiaphragm. The gastric fundus was elevated in an abnorm al configuration; however, the gastric mucosal pattern appeared unremarkable with no mass or ulcerati on identified. CODE STATUS: FULL CODE. ALLERGIES: ASPIRIN, CODEINE, ETHYLENEDIAMINE, IODINE, LANOLIN, NEOMYCIN, PROPOXYPHENE, SULFA. HOSPITAL COURSE: Ms. Villagomez is a pleasant 77-year-old female who presented to the emergency room co mplaining of vomiting as well as hematemesis. She has a known history of a large hiatal hernia and h as refused surgery in the past. She says that she normally sticks to a fairly strict diet, but says that she had gone to [facility] because she was tempted by some pancakes, ate these and then this set her s ymptoms off. Nevertheless, she was admitted and seen by Gastroenterology and underwent upper endosco py. It was found that she had severe erosive gastritis and evidence of the large hiatal hernia with some mild gastric volvulus. It was recommended that she undergo surgery as this could become a ruben us medical concern. The patient had been putting off surgery in the past, but at this point she feel s it is probably necessary to proceed. She was seen by General Surgery during this hospitalization a nd it was recommended that she do in fact undergo the surgery; however, she will need a cardiology cl earance prior to having the surgery. The patient also developed atrial fibrillation with rapid ventr icular response. She was initially started on Cardizem, but then converted. She was seen by Cardiol ogy as well as Electrophysiology and since the atrial fibrillation was fairly brief and the electroph ysiologist feels that it was likely precipitated by her GI symptoms he is not recommending any antico agulation at this time. He says then after she has her GI issues taken care of he would like to see her in followup likely a month or so. Then, at that time determine whether or not she needs treatmen t for the atrial fibrillation likely after wearing an event monitor. The patient's omeprazole dose w as increased to 20 mg twice daily and again she will not be discharged on any anticoagulation and robby l follow up in the outpatient setting with regards to treatment of the large hiatal hernia.
== END 2018-04-23 13:49 | disposition home or self-care (01) | DRG 391 ==
LOC: ERS 09:17 → ERHOLD 11:41 → 2NO 14:14
PROVIDERS: ADMIT Internal Medicine; ATTEND Internal Medicine
PROC: 0D9670Z Drainage of Stomach with Drainage Device, Via Natural or Artificial Opening (ICD-10-PCS; principal; 2018-04-19)
PROC: 0DB58ZX Excision of Esophagus, Via Natural or Artificial Opening Endoscopic, Diagnostic (ICD-10-PCS; 2018-04-20)
DX: K44.0 Diaphragmatic hernia with obstruction, without gangrene (principal); K22.11 Ulcer of esophagus with bleeding; K25.4 Chronic or unspecified gastric ulcer with hemorrhage; I10 Essential (primary) hypertension; E03.9 Hypothyroidism, unspecified; K21.9 Gastro-esophageal reflux disease without esophagitis; R00.0 Tachycardia, unspecified; D72.829 Elevated white blood cell count, unspecified; K21.0 Gastro-esophageal reflux disease with esophagitis; E87.6 Hypokalemia; J45.909 Unspecified asthma, uncomplicated; K31.89 Other diseases of stomach and duodenum; M81.0 Age-related osteoporosis without current pathological fracture; F32.9 Major depressive disorder, single episode, unspecified; K52.9 Noninfective gastroenteritis and colitis, unspecified; R43.0 Anosmia; E78.5 Hyperlipidemia, unspecified; K25.9 Gastric ulcer, unspecified as acute or chronic, without hemorrhage or perforation; J98.6 Disorders of diaphragm; I48.0 Paroxysmal atrial fibrillation; K29.70 Gastritis, unspecified, without bleeding
CPT/HCPCS: 36415; 71045; 74241; 80048; 80053; 82274; 82550; 82553; 83690; 83735; 83880; 84443; 84484; 85025; 85610; 85730; 86850; 86900; 86901; 88305; 88312; 88313; 93005; 93306; 96361; 96374; C9113; J0360; J2001; J2704; J3480; Q0162

== ENCOUNTER 2018-05-06 07:31 | Inpatient (IN) | payer MEDICARE ==
[2018-05-05 11:02] VITALS: BMI 25.0
[2018-05-06] MEDS ORDERED: CEFAZOLIN/Water 2 GM/20 ML SYRINGE ONE (08:12)
[2018-05-06] MEDS ORDERED: Fentanyl 100 MCG/2 ML VIAL ONE (08:48)
[2018-05-06] MEDS ORDERED: Bupivacaine/Epinephrine 0.25% 30 ML VIAL ONE (09:05)
[2018-05-06] MEDS ORDERED: Ondansetron HCl/PF 4 MG/2 ML Vial IVP PRN (12:13)
[2018-05-06] MEDS ORDERED: Promethazine HCl 25 MG/ML VIAL SLOW IVP PRN (12:13)
[2018-05-06] MEDS ORDERED: Promethazine HCl 25 MG/ML VIAL IM PRN ×2 (12:13→13:26)
[2018-05-06] MEDS ORDERED: Ondansetron PF 4 MG/2 ML Vial ONE (13:02)
[2018-05-06] MEDS ORDERED: Lidocaine 1% PF 5 ML VIAL ONE (13:02)
[2018-05-06] MEDS ORDERED: PROPOFOL 200 MG/20 ML VIAL ONE (13:02)
[2018-05-06] MEDS ORDERED: ePHEDrine/0.9% NaCl/PF SYRINGE 50 mg/10 ml ONE (13:02)
[2018-05-06] MEDS ORDERED: Hydrocortisone Sod Succ/PF 100 mg/2 ml Vial ONE (13:02)
[2018-05-06] MEDS ORDERED: Ketorolac Tromethamine 30 MG/ML VIAL ONE (13:02)
[2018-05-06] MEDS ORDERED: PHENYLEPHRINE-NS 100 MCG/ML 10 ML SYRINGE ONE (13:02)
[2018-05-06] MEDS ORDERED: Glycopyrrolate 0.2 MG/ML 5 ML SYRINGE ONE (13:02)
[2018-05-06] MEDS ORDERED: Dextrose 5% in Water 1,000 ML IV PRN (13:26)
[2018-05-06] MEDS ORDERED: Morphine 10 MG/ML VIAL SLOW IVP PRN (13:26)
[2018-05-06] MEDS ORDERED: Dextrose 50% Abboject 50 ML SYRINGE SLOW IVP PRN (13:26)
[2018-05-06] MEDS ORDERED: Ondansetron PF 4 MG/2 ML Vial IVP PRN (13:26)
[2018-05-06] MEDS ORDERED: hydrALAZINE 20 MG/ML VIAL SLOW IVP PRN (13:26)
[2018-05-06] MEDS: D5 1/2 NS w/20 mEq KCL 1,000 ML IV SCH (15:09)
--- NOTE | 2018-05-06 16:15 | RAD ---
CHEST ONE VIEW: 05/06/18 HISTORY: Low O2 sats. COMPARISON: None. FINDINGS: There appears to be subcutaneous emphysema of the shoulders bilaterally although is likely sequela of patient's positioning. Layering left effusion is similar to slightly improved. No pneumot horax. Possible small sliding hiatal hernia. IMPRESSION: 1. Subcutaneous emphysema of the neck bilaterally, likely artifactual due to position. 2. Small left effusion. 3. Likely small sliding hiatal hernia. POS: [facility]
[2018-05-06] MEDS: Acetaminophen 1,000 MG in Premix Bag 1 BAG IVPB PRN ×2 (17:08→23:19)
[2018-05-06] MEDS ORDERED: Artificial Tear Sol 15 ML BOT EA EYE PRN (20:47)
[2018-05-06] MEDS ORDERED: Gabapentin 300 MG CAP PO SCH (21:00)
[2018-05-06] MEDS ORDERED: Montelukast Sodium 10 mg Tablet PO SCH (21:00)
[2018-05-06] MEDS ORDERED: Atorvastatin Calcium 20 MG TAB PO SCH (21:00)
[2018-05-06] MEDS: Fluticasone Propionate Nasal Spray 16 gm Bottle NASAL SCH (21:24)
[2018-05-07] MEDS: D5 1/2 NS w/20 mEq KCL 1,000 ML IV SCH ×2 (04:03→04:49)
[2018-05-07] MEDS: Acetaminophen 1,000 MG in Premix Bag 1 BAG IVPB PRN (05:37)
[2018-05-07] MEDS ORDERED: Levothyroxine Sodium 75 MCG TAB PO SCH (06:00)
[2018-05-07 06:22] LABS: #Eosinphils 0.1 thou/uL (0.0-0.7); #Lymphocytes 0.9 thou/uL (1.20-3.40); #Monocytes 0.8 thou/uL (0.11-0.59); #Neutrophils 5.1 thou/uL (1.40-6.50); %Basophils 0.5 % (0.0-1.0); %Eosinophils 1.2 % (0.0-10.0); %Lymphocytes 12.8 % (21.0-51.0); %Monocytes 12.2 % (0.0-10.0); %Neutrophils 73.3 % (42.0-75.0); Mean Corpuscular HGB CONC 32.9 g/dL (32.0-36.0); Mean Corpuscular Hemoglobin 31.5 pg (27.0-31.0); Mean Corpuscular Volume 95.9 fL (78.0-98.0); Mean Platelet Volume 8.2 fL (7.4-10.4); Platelet Count 233 thou/uL (130-400); RBC Distribution Width 12.4 % (11.5-14.5); White Blood Cell (WBC) Count 6.9 thou/uL (4.8-10.8)
[2018-05-07 06:49] LABS: Anion Gap 10 mmol/L (10-20); BUN (Urea Nitrogen) 8 mg/dL (9.8-20.1); Calc. Creatinine Clearance 73 mL/min (70-130); Calcium 8.2 mg/dL (7.8-10.44); Carbon Dioxide 25 mmol/L (23-31); Chloride 104 mmol/L (98-107); Estimated GFR-MDRD 81; Glucose 114 mg/dL (83-110); Potassium 3.6 mmol/L (3.5-5.1); Sodium 135 mmol/L (136-145)
[2018-05-07] MEDS ORDERED: CARBOXYMETHYLCELLULOSE SODIUM OP PRN (07:25)
--- NOTE | 2018-05-07 07:36 | OP ---
DATE OF PROCEDURE: 05/06/2018 PREOPERATIVE DIAGNOSIS: Paraesophageal hiatal hernia, large. POSTOPERATIVE DIAGNOSIS: Paraesophageal hiatal hernia, large. PROCEDURE: Laparoscopic paraesophageal hiatal hernia repair with mesh and fundoplication, placement of percutaneous endoscopic guided gastrostomy tube. SURGEON: Chase Moyer M.D. ANESTHESIA: General. ESTIMATED BLOOD LOSS: 50 mL. COMPLICATIONS: None. FINDINGS: Two-thirds of the stomach is in the chest cavity. TECHNIQUE: The patient was taken to the operating room and placed supine on the table. After genera l anesthetic was obtained, her legs were split double strapped to the table. Her abdomen is prepped and draped in a sterile fashion. Left subcostal 5-mm Optiview trocar was placed in the usual fashion without injury. High-flow pneumoperitoneum was obtained. Left and right abdominal 5 mm ports are p laced to the left lower quadrant. The left lateral abdominal port will be the assist port. The righ t lateral port will be the liver retractor port. A 5 mm incision was made just to the right of the x iphoid subcostal. Camera port is placed one-third the distance from the umbilicus to the xiphoid. T he patient was placed in reverse Trendelenburg position. The 5 mm left subcostal port switched out t o an 8 port. The OG tube was removed. Two-thirds of the patient's stomach is up in the chest. The assist port was used to retract the stomach down. The phrenoesophageal ligament is incised along the right melia of the diaphragm. The gastrohepatic ligament was opened. There was no replaced left hep atic. A circumferential dissection of the esophagus is performed by switching between the right and left of the GE junction. This was difficult. There was a lot of stomach up into the chest. Finally , a window was made posterior to the GE junction and a Prateek was passed. It was held in place usin g a PDS Endoloop. This helped with retraction. A 44 bougie was brought in and its tip left in the a ntrum of the stomach. Meticulous dissection is performed circumferentially until all mediastinal adh esions are taken down bringing the GE junction and the fundus back into the abdominal cavity under no tension. No injury was made during this portion of the procedure. The short gastrics had been take n down in the upper fourth of the stomach to free up the fundus. There was no evidence of ischemia t o the stomach. The posterior crura were closed using 3 sutures of Ethibond in the tie knot system. The fundus was able to be passed posterior to the GE junction and a 360 degree floppy loose wrap was performed using 3 sutures of Ethibond. The middle sutures used to get a piece of the GE junction to hold the wrap in place. Care had been taken to avoid making sure the wrap was not too tight and avoi d making sure the fundus was passed posterior and was not twisted. The Strattice perforated mesh is brought in and used as an overlay over the crural repair. It is held in place using suture as well a s to aerosolized Tisseel. Due to the patient's advanced age, large hiatal hernia, the decision was m louise to place a feeding tube as an anchor as well as an adjunct to postop nutrition. The bougie had b een removed, the liver retractor was removed. There was no ongoing bleeding or injury to any intraab dominal structures. EGD is passed into the esophagus, stomach to the level of the duodenum without o bstruction. There was no stricture at the wrap. There was no evidence of distal esophageal strictur e. The diaphragmatic closure was not too tight nor was the wrap. The left subcostal incision was us ed for the PEG. The needle was passed through this into the stomach. A wire was passed. The wire w as snared through the scope, brought out through the mouth, connected to the PEG. The PEG was then b rought through the oropharynx out the stomach. The external bar was used to hold the PEG to the supe rficial skin. EGD scope was removed. All ports were removed under direct visualization without blee ding and pneumoperitoneum is let down. 4-0 Monocryl and Dermabond were used to close all skin incisi ons. The patient is en route to recovery room in stable condition. All instrument counts, needle co unts, lap counts are correct.
[2018-05-07] MEDS ORDERED: Artificial Tear Sol 15 ML BOT EA EYE PRN (07:38)
[2018-05-07] MEDS ORDERED: MOMETASONE FUROATE ALT NARE SCH (09:00)
[2018-05-07] MEDS ORDERED: Pantoprazole 40 MG VIAL IVP SCH (09:00)
[2018-05-07] MEDS ORDERED: predniSONE 5 MG TAB PO SCH (09:00)
[2018-05-07] MEDS ORDERED: Non-Formulary Item 1 EACH (Cholecalciferol (Vitamin D3) [Vitamin D3] 1 TAB) PO SCH (09:00)
[2018-05-07] MEDS ORDERED: Non-Formulary Item 1 EACH (Vitamin E [Vitamin E] 400 UNIT) PO SCH (09:00)
[2018-05-07] MEDS: Gabapentin 300 MG CAP PO SCH ×3 (09:30→19:35)
[2018-05-07] MEDS: Vitami E (Dl,Tocopheryl Acet) 400 UNITS CAP PO SCH (09:30)
[2018-05-07] MEDS: Fluticasone Propionate Nasal Spray 16 gm Bottle NASAL SCH ×2 (09:31→19:36)
[2018-05-07] MEDS: Enoxaparin Sodium 40 MG/0.4 ML SYRINGE SC SCH (09:31)
[2018-05-07] MEDS: predniSONE 1 MG TAB PO SCH (09:33)
[2018-05-07] MEDS: Levothyroxine Sodium 75 MCG TAB PO SCH (09:34)
--- NOTE | 2018-05-07 11:05 | RAD ---
FIFTEEN MILLILITER SWALLOW UPPER GI SERIES: HISTORY: Hiatal hernia repair. RADIATION DOSIMETRY: 0.5 minutes fluoroscopy. 9.5 ray per cm2 DAP. TECHNIQUE: Gastrografin 15 mL was given to the patient. Spot images were obtained. FINDINGS: The Gastrografin passes through the esophagus and into the stomach without difficulty. The GE juncti on is below the left hemidiaphragm. No evidence of perforation or evidence of extravasation of contr ast seen outside the GI lumen. The contrast passes readily into the stomach. IMPRESSION: Normal post hiatal hernia repair upper gastrointestinal series. POS: [facility]
[2018-05-07] MEDS ORDERED: GASTROGRAFIN 30 ML BOT ONE (11:28)
--- NOTE | 2018-05-07 14:10 | PRG ---
DATE OF SERVICE: 05/07/2018 SUBJECTIVE: Ms. Villagomez is doing well. Her swallow evaluation showed no hold up at her repair. She is tolerating the clear liquids. She was started on some full liquids. She is drinking without dif ficulty. No vomiting. No acid reflux symptoms. She has been walking around in the room a little bi t, but not out in the lao yet. PHYSICAL EXAMINATION: VITAL SIGNS: Afebrile. Vital signs are stable. LUNGS: Bilateral breath sounds are positive. HEART: Regular rate and rhythm. ABDOMEN: Soft. Incisions healing well. ASSESSMENT: Postop day #1, hiatal hernia repair. PLAN: Full liquids. We will ambulate in the lao this afternoon. I suspect she will go home tomorr ow.
[2018-05-07] MEDS: Acetaminophen 325 MG TAB PO PRN (17:31)
[2018-05-07] MEDS: Atorvastatin Calcium 20 MG TAB PO SCH (19:35)
[2018-05-07] MEDS: Mometasone Furoate 120 PUFF 220 MCG INH SCH (19:35)
[2018-05-07] MEDS: Montelukast Sodium 10 mg Tablet PO SCH (19:35)
[2018-05-08] MEDS: Mometasone Furoate 120 PUFF 220 MCG INH SCH ×2 (07:47→19:25)
[2018-05-08] MEDS: Enoxaparin Sodium 40 MG/0.4 ML SYRINGE SC SCH (08:52)
[2018-05-08] MEDS: Vitami E (Dl,Tocopheryl Acet) 400 UNITS CAP PO SCH (08:53)
[2018-05-08] MEDS: Levothyroxine Sodium 75 MCG TAB PO SCH (08:53)
[2018-05-08] MEDS: Gabapentin 300 MG CAP PO SCH ×3 (08:53→21:28)
[2018-05-08] MEDS: predniSONE 1 MG TAB PO SCH (08:54)
[2018-05-08] MEDS: Fluticasone Propionate Nasal Spray 16 gm Bottle NASAL SCH ×2 (08:54→21:29)
--- NOTE | 2018-05-08 09:59 | PRG ---
DATE OF SERVICE: 05/08/2018 Ms. Villagomez is complaining of more soreness today. She has not been out of bed except to the bathro om, no walking in the lao this morning. PHYSICAL EXAMINATION: VITAL SIGNS: She is afebrile. Vital signs are stable. ABDOMEN: Soft. Her wounds are healing well. Her PEG tube was loosened. ASSESSMENT: 1. Postop day two, hiatal hernia repair 2. Acute on chronic deconditioning. PLAN: We will have a custodial see her for potentially custodial. I again encouraged he r to use her PEG tube for supplements, even just water.
[2018-05-08] MEDS ORDERED: Diltiazem 125 MG in Sodium Chloride 0.9% 100 ML IVPB PRN (15:55)
[2018-05-08 16:33] LABS: Free T4 (Free Thyroxine) 1.6 ng/dL (0.70-1.48); Thyroid Stimulating Hormone 0.5414 uIU/mL (0.35-4.94)
--- NOTE | 2018-05-08 16:53 | CON ---
DATE OF CONSULTATION: 05/08/2018 PRIMARY CARE PHYSICIAN: Augustine Holland D.O. PRIMARY ATTENDING: Chase Moyer M.D. REASON FOR CONSULTATION: Medical management, complaint of palpitation. HISTORY OF PRESENT ILLNESS: A 77-year-old female who was admitted early this month on 04/19/2018 wit h hematemesis. At that time, the patient was diagnosed with large sliding hiatal hernia. The patien t was discharged home on 04/23/2018 and the patient was readmitted today electively to repair paraeso phageal hiatal hernia. The patient had surgical procedure on 05/06/2018. The patient underwent lapa roscopic paraesophageal hiatal hernia repair with mesh and fundoplication. Percutaneous endoscopic g astrostomy tube was placed. Today is postoperative day 2 Nursing noticed that the patient's heart rate was fast and irregular and that is why EKG was done, wh ich showed sinus tachycardia with premature atrial complexes with heart rate in 139. The patient was feeling palpitations. She did not have any chest pain or dizziness. She denies any nausea or vomit ing. She denies any pain. She is started on clear liquid diet. The patient is seen and examined. EKG reviewed. At that point, we decided to transfer this patient on telemetry floor for close monitoring. The patient denies any UTI symptoms. She denies any cough, shortness of breath, orthopnea, PND, leg swelling. She denies any abdominal pain. REVIEW OF SYSTEMS: The following complete review of systems was negative, unless otherwise mentioned in the HPI or below: Constitutional: Weight loss or gain, ability to conduct usual activities. Sk in: Rash, itching. Eyes: Double vision, pain. ENT/Mouth: Nose bleeding, neck stiffness, pain, te nderness. Cardiovascular: Palpitations, dyspnea on exertion, orthopnea. Respiratory: Shortness of breath, wheezing, cough, hemoptysis, fever or night sweats. Gastrointestinal: Poor appetite, abdom inal pain, heartburn, nausea, vomiting, constipation, or diarrhea. Genitourinary: Urgency, frequenc y, dysuria, nocturia. Musculoskeletal: Pain, swelling. Neurologic/Psychiatric: Anxiety, depressio n. Allergy/Immunologic: Skin rash, bleeding tendency. Please see my HPI for pertinent positive and negative. All other review of systems reviewed and negative except as mentioned in the HPI. ADDITIONAL INFORMATION: The patient reports that in the past she had several episodes of passing out in [facility], but she never put attention to going to the hospital for evaluation. Her most recent adm ission in 04/19/2018 was related with vomiting of blood. PAST MEDICAL HISTORY: Osteoporosis, mild intermittent asthma, hypothyroidism, dyslipidemia, large pa raesophageal hernia, gastroesophageal reflux disease, history of colon polyp. PAST SURGICAL HISTORY: Colonoscopy and polypectomy, partial hysterectomy, cataract surgery, right lo wer extremity fracture treated with ORIF. The patient underwent laparoscopic paraesophageal hernia r epair and percutaneous gastrostomy tube placement. FAMILY HISTORY: Father had colon cancer. Mother had CHF and emphysema. PAST PSYCHIATRIC HISTORY: Reviewed and negative. SOCIAL HISTORY: The patient lives at home by herself. She is . No history of smoking, alcoh ol or other illicit drug abuse. ALLERGIES: The patient is allergic to multiple medications including ASPIRIN, CODEINE, DARVON, IODIN E, NEOMYCIN, SULFA, TETRACYCLINE. HOSPITAL COURSE: Reviewed. CURRENT HOME MEDICATIONS: Lipitor 20 mg p.o. at bedtime, vitamin D3 1000 unit p.o. daily, Persantine 75 mg p.o. b.i.d., gabapentin 300 mg t.i.d., Synthroid 75 mcg p.o. daily, Singulair 10 mg p.o. daily , mometasone 2 puffs daily, Trental 400 mg p.o. b.i.d., prednisone 2 mg daily, vitamin E 400 unit p.o . daily, omeprazole 20 mg p.o. b.i.d. PHYSICAL EXAMINATION: VITAL SIGNS: Currently, temperature 97.1, pulse 123 and irregular, blood pressure 152/90, saturation 97% on room air, weight 150 pounds. GENERAL: The patient is currently alert, awake, no obvious acute distress. HEAD: Normocephalic, atraumatic. EYES: Pupils round, reactive to light. Extraocular muscle intact. ENT: Oropharynx within normal limit. Somewhat dry appearing mucous membrane. No oral lesion, no ph aryngeal erythema, no exudate. NECK: Supple, no JVD, no thyromegaly, no carotid bruit. LUNGS: Clear to auscultation without any rhonchi or rales. CARDIAC: S1, S2 irregular. No murmur elicited, no gallop, no rub. Heart rate is faster. ABDOMEN: G-tube in place. Surgical site is clean and healthy. No peritoneal sign, no guarding, no rigidity, no rebound. Bowel sounds present. No distention, no organomegaly, no mass, no suprapubic tenderness. BACK: Unremarkable. No CVA tenderness. EXTREMITIES: Upper extremities, passive movement of all joints are normal. Lower extremities, no ed camryn. Good distal pulsation. SKIN: No skin rash. HEMATOLOGICAL: No lymphadenopathy. PSYCHIATRIC: Normal affect. SIGNIFICANT LABORATORY DATA: CBC, WBC 6.9, hemoglobin 11.0, platelet 233,000. BMP, sodium 135, pota ssium 3.6, chloride 104, carbon dioxide 25, anion gap 10, BUN 8, creatinine 0.70, glucose 114, calciu m 8.2. Hospital course and [employer] completely reviewed. ASSESSMENT AND PLAN: 1. Palpitations. The patient does have atrial arrhythmia with a premature ventricular contraction. The patient's EKG is done and concerning for atrial fibrillation. At this point, we will transfer h er to telemetry floor for close monitoring. We will check TSH, free T3 and T4. We will give her Car dizem 10 mg IV push one time dose and start Cardizem 30 mg p.o. a.c. and at bedtime. We will also do serial cardiac enzymes x3. The patient already had echocardiography during previous admission, so n o need of repeating echocardiography at this point. 2. Status post paraesophageal hiatal hernia repair, laparoscopically NG tube placement. The patient is doing well and she is tolerating full liquid diet. Management will defer to primary team. 3. Asthma. Continue Singulair 10 mg p.o. at bedtime. Ventolin inhaler as needed basis. 4. Dyslipidemia. Continue Lipitor 20 mg p.o. at bedtime. 5. Hypothyroidism. We will check thyroid function test and continue Synthroid 75 mcg p.o. daily. 6. Gastroesophageal reflux disease. Continue Protonix 40 mg p.o. daily. 7. Peripheral neuropathy. Continue gabapentin 300 mg p.o. t.i.d. 8. Deep venous thrombosis prophylaxis. Lovenox 40 mg subcu daily. 9. Gastrointestinal prophylaxis. Protonix 40 mg p.o. daily. CODE STATUS: The patient is full code. The patient does not have any surrogate decision maker. Disposition plan based on clinical course and primary team. We will closely monitor the patient on t elemetry floor. Thank you for the consult. We will follow up with you while in hospital.
[2018-05-08] MEDS: Acetaminophen 325 MG TAB PO PRN (17:32)
[2018-05-08 18:33] LABS: CKMB 1.2 ng/mL (0-6.6); Troponin I 0.012 ng/mL (< 0.028)
[2018-05-08] MEDS: Mometasone Furoate 30 PUFF 220 MCG INH SCH (19:18)
[2018-05-08 21:11] LABS: CKMB 1.2 ng/mL (0-6.6); Troponin I Less than 0.010 ng/mL (< 0.028)
[2018-05-08] MEDS: Atorvastatin Calcium 20 MG TAB PO SCH (21:28)
[2018-05-08] MEDS: Montelukast Sodium 10 mg Tablet PO SCH (21:28)
[2018-05-09 01:10] LABS: CKMB 0.8 ng/mL (0-6.6); Troponin I Less than 0.010 ng/mL (< 0.028)
[2018-05-09 06:21] LABS: #Eosinphils 0.3 thou/uL (0.0-0.7); #Lymphocytes 0.5 thou/uL (1.20-3.40); #Monocytes 0.8 thou/uL (0.11-0.59); #Neutrophils 5.3 thou/uL (1.40-6.50); %Basophils 0.1 % (0.0-1.0); %Eosinophils 3.8 % (0.0-10.0); %Lymphocytes 6.9 % (21.0-51.0); %Monocytes 12.1 % (0.0-10.0); %Neutrophils 77.1 % (42.0-75.0); Hemoglobin 11.5 g/dL (12.0-16.0); Mean Corpuscular HGB CONC 32.7 g/dL (32.0-36.0); Mean Corpuscular Hemoglobin 31.5 pg (27.0-31.0); Mean Corpuscular Volume 96.5 fL (78.0-98.0); Mean Platelet Volume 8.2 fL (7.4-10.4); Platelet Count 222 thou/uL (130-400); RBC Distribution Width 12.4 % (11.5-14.5); Red Blood Cell (RBC) Count 3.64 mill/uL (4.20-5.40); White Blood Cell (WBC) Count 6.9 thou/uL (4.8-10.8)
[2018-05-09 06:53] LABS: ALT (SGPT) Less than 7 U/L (8-55); AST (SGOT) 15 U/L (5-34); Albumin 2.8 g/dL (3.4-4.8); Alkaline Phosphatase 77 U/L (40-150); Anion Gap 10 mmol/L (10-20); BUN (Urea Nitrogen) 6 mg/dL (9.8-20.1); Bilirubin, Total 0.7 mg/dL (0.2-1.2); Calc. Creatinine Clearance 75 mL/min (70-130); Calcium 8.4 mg/dL (7.8-10.44); Carbon Dioxide 26 mmol/L (23-31); Chloride 104 mmol/L (98-107); Estimated GFR-MDRD 81; Globulin 2.5 g/dL (2.4-3.5); Glucose 93 mg/dL (83-110); Potassium 3.9 mmol/L (3.5-5.1); Protein, Total 5.3 g/dL (6.0-8.3); Sodium 136 mmol/L (136-145)
[2018-05-09] MEDS: Mometasone Furoate 30 PUFF 220 MCG INH SCH (08:20)
[2018-05-09] MEDS ORDERED: Levothyroxine Sodium 50 MCG TAB PO SCH (08:45)
[2018-05-09] MEDS: Fluticasone Propionate Nasal Spray 16 gm Bottle NASAL SCH (09:24)
[2018-05-09] MEDS: Enoxaparin Sodium 40 MG/0.4 ML SYRINGE SC SCH (09:25)
[2018-05-09] MEDS: predniSONE 1 MG TAB PO SCH (09:26)
[2018-05-09] MEDS: Gabapentin 300 MG CAP PO SCH (09:26)
[2018-05-09] MEDS: Vitami E (Dl,Tocopheryl Acet) 400 UNITS CAP PO SCH (09:27)
--- NOTE | 2018-05-09 10:45 | PRG ---
TRANSFER OF CARE NOTE/SIGN OFF NOTE/PROGRESS NOTE DATE OF ADMISSION: 05/06/2018 DATE OF DISCHARGE: 05/09/2018 DISCHARGE DISPOSITION: Home. PRIMARY DISCHARGE DIAGNOSES: 1. Status post laparoscopic paraesophageal hiatal hernia repair. 2. Status post gastrostomy tube placement. 3. Atrial tachyarrhythmia. 4. Palpitation due to problem #3. 5. Subclinical hyperthyroidism due to medication. SECONDARY DISCHARGE DIAGNOSES: Mild intermittent asthma, hypertension, history of sliding hiatal her janel, hypothyroidism. PRIMARY PROCEDURES/OPERATIONS: Laparoscopic paraesophageal hiatal hernia repair, gastrostomy tube pl acement. RADIOLOGICAL INVESTIGATION: Upper GI series without air contrast, chest x-ray. SIGNIFICANT LABORATORY DATA: WBC 6.9, hemoglobin 11.5, platelets 222. Sodium 136, potassium 3.9, BU N 6, creatinine 0.70. Liver enzymes normal. Albumin 2.8. Cardiac enzymes negative x3. Free T4 1.6 0, free T3 1.54. TSH 0.54. DISCHARGE MEDICATIONS: Tylenol 500 mg p.r.n., Lipitor 20 mg p.o. at bedtime, vitamin D3 1000 unit p. o. daily, Persantine 75 mg p.o. b.i.d., Neurontin 300 mg t.i.d., mometasone nasal spray daily, Singul air 10 mg p.o. at bedtime, Trental 400 mg p.o. b.i.d., prednisone 2 mg p.o. daily, vitamin E 400 unit p.o. daily, Synthroid 50 mcg p.o. daily, metoprolol 25 mg p.o. b.i.d., omeprazole 20 mg p.o. b.i.d. CONTRAINDICATIONS: None. CODE STATUS: FULL CODE. INPATIENT CONSULTANTS: Dr. Moyer was primary while in hospital. Sound Team was consulted for [facility]. ALLERGIES: ASPIRIN, SULFA DRUGS, TETRACYCLINE. DISCHARGE PLAN: Post hospital, the patient will follow up with Dr. Chase Moyer as instructed. The patient will follow up with primary care physician, Dr. Raj Mock in 1 week. HOSPITAL COURSE: A 77-year-old female who was electively admitted by Dr. Moyer on 05/06/2018. The patient had chest x-ray on that day which was showing subcutaneous emphysema of the neck bilaterally , sliding hiatal hernia. The patient also had upper GI series without contrast which showed normal p ost-hiatal hernia repair. The patient had a laparoscopic paraesophageal hiatal hernia repair and a G -tube was placed. Postoperatively, she was doing well. She was tolerating her diet. While at the s urgical floor the patient was complaining of palpitation and she had EKG done, which showed atrial ar rhythmia. The patient was transferred to telemetry floor. We monitored her on telemetry. Her heart rate remained under control. She had negative cardiac enzyme. We checked thyroid function test [facility] showing subclinical hyperthyroidism and that is why we reduced dose of Synthroid. We started meto prolol because the patient was having on and off palpitation at home. Rest of medication was continu ed as per previous. The patient is seen and examined at bedside today. Telemetry is showing sinus rhythm. She did not h ave any overnight event. VITAL SIGNS: Her vitals are stable. Currently, temperature 98.3, pulse 72, respiratory rate 18, sat uration 92%, blood pressure 128/60. Weight 152 pounds. GENERAL: The patient is currently alert, awake, no obvious acute distress. HEAD: Normocephalic, atraumatic. EYES: Pupils round, reactive to light. Extraocular muscle intact. ENT: Oropharynx within normal limits. Moist mucous membranes. No oral lesion, no pharyngeal erythe ma. LUNGS: Clear, without any rhonchi. CARDIAC: S1, S2 regular without any murmur. ABDOMEN: G-tube in place. No peritoneal sign. EXTREMITIES: No edema. NEUROLOGIC: Nonfocal examination. REVIEW OF SYSTEMS: Reviewed with her and negative. MEDICATIONS: All new medication prescription sent to her pharmacy. Initially, we were giving her Cardizem while in hospital p.o. form but we changed to metoprolol upon discharge. Dose of levothyroxine reduced from 75 to 50 mcg [address] daily[address] Dr. Moyer is okay, then this patient is medical perspective stable for discharge.
[2018-05-09 11:54] VITALS: BP 126/61; TEMP 98.5
[2018-05-09] MEDS ORDERED: Metoprolol Tartrate 25 MG TAB PO SCH (21:00)
[2018-05-10] MEDS ORDERED: Levothyroxine Sodium 50 MCG TAB PO SCH (06:00)
== END 2018-05-09 14:05 | disposition home or self-care (01) | DRG 327 ==
LOC: SDC 07:31 → SURG A 12:42 → OBSVTOIN 12:42 → 2NO 05-08 16:48
PROVIDERS: ADMIT Surgery; ATTEND Surgery
PROC: 0BUT4JZ Supplement Diaphragm with Synthetic Substitute, Percutaneous Endoscopic Approach (ICD-10-PCS; principal; 2018-05-06)
PROC: 0DV44ZZ Restriction of Esophagogastric Junction, Percutaneous Endoscopic Approach (ICD-10-PCS; 2018-05-06)
PROC: 0DH63UZ Insertion of Feeding Device into Stomach, Percutaneous Approach (ICD-10-PCS; 2018-05-06)
DX: K44.9 Diaphragmatic hernia without obstruction or gangrene (principal); I47.1 Supraventricular tachycardia; J45.20 Mild intermittent asthma, uncomplicated; E03.9 Hypothyroidism, unspecified; Z88.6 Allergy status to analgesic agent; Z88.1 Allergy status to other antibiotic agents; Z88.2 Allergy status to sulfonamides; E05.80 Other thyrotoxicosis without thyrotoxic crisis or storm; E78.5 Hyperlipidemia, unspecified; G62.9 Polyneuropathy, unspecified; T38.1X5A Adverse effect of thyroid hormones and substitutes, initial encounter
CPT/HCPCS: 36415; 71045; 74241; 80048; 80053; 82553; 84439; 84443; 84481; 84484; 85025; 93005; 93010; 94640; G8987-GO-CK; G8988-GO-CI; J0131; J1650; J1720; J1885; J2001; J2405; J2704; J3010; J7050; J7620; Q4130

== ENCOUNTER 2018-11-16 06:41 | Inpatient (IN) | payer MEDICARE ==
[2018-11-16 07:17] LABS: #Eosinphils 0.3 thou/uL (0.0-0.7); #Lymphocytes 1.4 thou/uL (1.20-3.40); #Monocytes 1.1 thou/uL (0.11-0.59); #Neutrophils 7.1 thou/uL (1.40-6.50); %Basophils 0.2 % (0.0-1.0); %Eosinophils 3.1 % (0.0-10.0); %Lymphocytes 14.4 % (21.0-51.0); %Monocytes 11.3 % (0.0-10.0); Mean Corpuscular HGB CONC 32.6 g/dL (32.0-36.0); Mean Corpuscular Hemoglobin 31.7 pg (27.0-31.0); Mean Corpuscular Volume 97.2 fL (78.0-98.0); Mean Platelet Volume 9.4 fL (7.4-10.4); Platelet Count 178 thou/uL (130-400); RBC Distribution Width 12.7 % (11.5-14.5); Red Blood Cell (RBC) Count 3.48 mill/uL (4.20-5.40)
[2018-11-16] MEDS ORDERED: Acetaminophen 1,000 MG in Premix Bag 1 BAG IVPB SCH ×2 (07:30→14:00)
--- NOTE | 2018-11-16 07:36 | RAD ---
AP view chest. HISTORY: Fall. AP view chest demonstrates the lungs to be well aerated. No evidence of active intrathoracic disease seen. Calcination seen in the splenic artery. Left shoulder degenerative changes seen. IMPRESSION: no evidence of acute intrathoracic abnormality seen.
[2018-11-16 07:41] LABS: ALT (SGPT) 22 U/L (8-55); AST (SGOT) 33 U/L (5-34); Albumin 3.6 g/dL (3.4-4.8); Alkaline Phosphatase 111 U/L (40-150); Anion Gap 10 mmol/L (10-20); BUN (Urea Nitrogen) 16 mg/dL (9.8-20.1); Bilirubin, Total 0.4 mg/dL (0.2-1.2); Calc. Creatinine Clearance 0 mL/min (70-130); Carbon Dioxide 24 mmol/L (23-31); Chloride 112 mmol/L (98-107); Estimated GFR-MDRD 67; Globulin 2.6 g/dL (2.4-3.5); Glucose 121 mg/dL (83-110); Potassium 3.4 mmol/L (3.5-5.1); Protein, Total 6.2 g/dL (6.0-8.3); Sodium 143 mmol/L (136-145)
--- NOTE | 2018-11-16 08:25 | RAD ---
AP view pelvis. HISTORY: Trauma and left hip pain. Deformity left hip AP view pelvis obtained. There is a comminuted intertrochanteric left hip fracture. There is angulation of the distal fracture fragment. The rest the pelvis is unremarkable. IMPRESSION: comminuted intertrochanteric fracture proximal left femur.
--- NOTE | 2018-11-16 09:17 | HP ---
TRAUMA SURGEON: Dr. Aden. CONSULTING PHYSICIAN: Dr. Delgado. HISTORY OF PRESENT ILLNESS: The patient is a 78-year-old female, who presented to the emergency department after reporting a slip and fall in the shower resulting in a left intertrochanteric femur fracture. The patient was not ambulatory after the fall and arrived via EMS. At the time of my evaluation, she only complained of left-sided hip pain. She denied loss of consciousness as well. Reports a recent history of hiatal hernia repair in April and has had no complications since that time. PAST MEDICAL HISTORY: Hypothyroidism, hiatal hernia, asthma, hypertension. The patient also reported episode of atrial fibrillation while she was hospitalized in April for the hiatal hernia repair. SURGICAL HISTORY: Hiatal hernia surgery, partial hysterectomy, tailbone surgery , tonsillectomy, right tib-fib and ankle surgery. SOCIAL HISTORY: The patient denies alcohol, tobacco and drug use. MEDICATIONS: 1. Trental. 2. Benefiber. 3. Levothyroxine. 4. Metoprolol. 5. Singulair. 6. Persantine. The patient not sure of other medications. We will complete med rec. ALLERGIES: 1. ASPIRIN. 2. SULFA. 3. SULFIDES. 4. SULFATES. 5. DARVON COMPOUND. 6. CODEINE. 7. IODINE. 8. SPORANOX. 9. TETRACYCLINE. 10. NEOSPORIN. PHYSICAL EXAMINATION: VITAL SIGNS: Temperature 97.5, pulse 51, respirations 16, oxygen 95% on room air, blood pressure 155/58. PRIMARY SURVEY: Airway intact. Adequate breath sounds bilaterally. 2+ pulses in the bilateral radials, femorals, and DPs. GCS is 15. Gross motor and sensation intact. No lacerations, abrasions, or bruising. No external bleeding. SECONDARY SURVEY: Normocephalic, atraumatic. No gross palpable skull deformities or tenderness. Pupils 3 to 2 equal, round, reactive to light bilaterally. ENT; no hemotympanum. No epistaxis. No septal hematoma. Midface stable to manipulation. No blood in the oropharynx. Dentition is intact. No anterior neck injury/crepitus/tenderness. C-spine; no step-offs or tenderness of the C-spine. C-collar not in place. Chest; nontender. No crepitus. No abrasions or ecchymosis noted. Equal chest rise and fall. Abdomen; soft, nontender, nondistended. Pelvis; stable to palpation. Tenderness over the left pelvis and anterior thigh. No abrasions or ecchymosis noted. Rectal; deferred. Genitourinary; deferred. Extremities; left lower extremity is shortened and externally rotated. No abrasions or ecchymosis noted. 2+ pulses in the bilateral radials, femorals, and DPs. Back/spine; no step-offs or deformities or tenderness to the thoracic or lumbar spine. No abrasions or ecchymosis noted. Neuro; 5/5 strength in the bilateral soda fountain clerk, plantar flexion, and dorsiflexion. Gross normal sensation x4 extremities. GCS is 15. LABORATORY FINDINGS: White count 10.0, hemoglobin 11.0, hematocrit 33.6, platelets 178. Sodium 143, potassium 3.4, chloride 112, carbon dioxide 24, BUN 16, creatinine 0.83, glucose 121, AST 33, ALT 22, total bilirubin 0.4. DIAGNOSTIC FINDINGS: X-ray of the pelvis demonstrates a comminuted intertrochanteric fracture of the proximal left femur. Chest x-ray demonstrates no evidence of acute intrathoracic abnormality seen. ASSESSMENT: 1. Status post mechanical fall from standing. 2. Left intertrochanteric femur fracture. 3. Hypokalemia. 4. Bradycardia, stable. 5. Acute traumatic pain. 6. History of asthma, hypertension, hypothyroidism, and possibly atrial fibrillation. PLAN: The patient's EKG demonstrated sinus bradycardia at a rate of 55. No atrial fibrillation noted. The patient has been hemodynamically stable. She is to go to the OR with Dr. Delgado of Orthopedic Surgery for fixation of her left intertrochanteric femur fracture. Postoperatively, she will be admitted to the Trauma floor. She can have a diet at that time. In the meantime, she can have normal saline at 75 an hour. We will also complete a mag and a phos, and subsequently we will replace potassium as indicated. We will also correct any other electrolytes. Postoperatively, she will be seen by Physical and Occupational Therapy. She will likely need placement at acute rehab for further rehab. The patient was discussed with Dr. Aden before this dictation. Job ID: [id number] MTDD
[2018-11-16] MEDS ORDERED: Cepastat Lozenges 1 LOZ PO PRN (09:24)
[2018-11-16] MEDS ORDERED: Bisacodyl 10 MG SUPP PR PRN (09:24)
[2018-11-16] MEDS ORDERED: Ondansetron PF 4 MG/2 ML Vial IVP PRN ×2 (09:24→12:33)
[2018-11-16] MEDS ORDERED: Milk Of Magnesia 30 ML UDCUP PO PRN (09:24)
[2018-11-16] MEDS ORDERED: Fentanyl 100 MCG/2 ML VIAL SLOW IVP PRN (09:24)
[2018-11-16] MEDS ORDERED: Fleet Enema 133 ML BOT PR PRN (09:24)
[2018-11-16] MEDS ORDERED: traMADol HCl 50 MG TAB PO PRN ×4 (09:24→12:33)
[2018-11-16] MEDS ORDERED: Ondansetron ODT 4 MG TAB PO PRN (09:24)
[2018-11-16] MEDS ORDERED: Ketamine 50 MG/ML (10ML VIAL) ONE (09:58)
[2018-11-16] MEDS ORDERED: Fentanyl 100 MCG/2 ML VIAL ONE ×2 (10:01→12:07)
--- NOTE | 2018-11-16 10:31 | CON ---
DATE OF CONSULTATION: PREOPERATIVE DIAGNOSIS: Left intertrochanteric hip fracture. HISTORY OF PRESENT ILLNESS: She is a very pleasant woman, who lives with her son, who has cerebral palsy, who has had normal mental function, but physically disabled. She fell in the shower, suffering fracture of her left intertrochanteric region. PAST MEDICAL HISTORY: Positive for multiple fractures particularly in the right leg, hiatal hernia surgery, and peripheral vascular disease. ALLERGIES: ALLERGIES TO MEDICATION EXTENSIVE INCLUDES IODINE, SULFA, AND ASPIRIN, WHICH GIVES HER ANAPHYLAXIS. SOCIAL HISTORY: Does not smoke or drink. Lives with her son. REVIEW OF SYSTEMS: Negative for head or neck trauma, nausea, or vomiting. PHYSICAL EXAMINATION: GENERAL: Pleasant woman, who is in no distress, after receiving some pain medicine. EXTREMITIES: She has shortening and external rotation of the left hip. No palpable pulses on the left foot. SKIN: Intact over the left hip. IMAGING STUDIES: Radiograph show a completely displaced intertrochanteric fracture. PLAN: Intramedullary fixation. Discussed benefits and risks including infection, stiffness, blood clot, transfusion, and . They elect to proceed with surgery. Job ID: [id number]
[2018-11-16] MEDS ORDERED: PACU-Morphine 4MG/ML VIAL SLOW IVP PRN (10:54)
[2018-11-16] MEDS ORDERED: Ondansetron HCl/PF 4 MG/2 ML Vial IVP PRN (10:54)
[2018-11-16] MEDS ORDERED: Meperidine HCl/PF 25 MG/ML VIAL SLOW IVP PRN (10:54)
[2018-11-16] MEDS ORDERED: Promethazine HCl 25 MG/ML VIAL IM PRN ×2 (10:54→12:33)
[2018-11-16] MEDS ORDERED: Morphine Sulfate 2 MG/ML SYRINGE SLOW IVP PRN (10:54)
[2018-11-16] MEDS ORDERED: HYDROmorphone 2 MG/ML VIAL SLOW IVP PRN (10:54)
[2018-11-16] MEDS ORDERED: Promethazine HCl 25 MG/ML VIAL SLOW IVP PRN (10:54)
--- NOTE | 2018-11-16 11:16 | RAD ---
EXAM: XR Hip Lt 2-3 View PROVIDED CLINICAL HISTORY: Fracture fixation COMPARISON: Pelvic radiograph earlier same date FINDINGS: Spot fluoroscopic intraoperative views of the left hip demonstrate interval placement of antegrade in tramedullary femoral nail with proximal and distal interlocking screws transfixing previously described intertrochanteric left proximal femoral fracture with resultant improved alignment. IMPRESSION: As above.
[2018-11-16] MEDS ORDERED: Artificial Tear Sol 15 ML BOT EA EYE PRN (12:11)
[2018-11-16] MEDS ORDERED: Dextrose 5% in Water 1,000 ML IV PRN (12:33)
[2018-11-16] MEDS ORDERED: Famotidine 20 MG TAB PO SCH ×3 (12:33→21:00)
[2018-11-16] MEDS ORDERED: Dextrose 50% Abboject 50 ML SYRINGE SLOW IVP PRN (12:33)
[2018-11-16] MEDS ORDERED: hydrALAZINE 20 MG/ML VIAL SLOW IVP PRN (12:33)
[2018-11-16] MEDS ORDERED: Polyethylene Glycol 3350 17 GM Packet PO SCH ×2 (12:33→12:45)
[2018-11-16] MEDS ORDERED: Senokot S 8.6-50 MG TAB PO SCH ×3 (12:33→21:00)
[2018-11-16] MEDS ORDERED: Morphine 2 MG/ML SYRINGE SLOW IVP PRN (12:43)
[2018-11-16 12:54] LABS: Magnesium 1.9 mg/dL (1.6-2.6); Phosphorus 2.5 mg/dL (2.3-4.7)
[2018-11-16 13:08] VITALS: BMI 23.8
[2018-11-16] MEDS ORDERED: Sodium Chloride 0.9% 1,000 ML IV SCH (13:15)
[2018-11-16] MEDS: Gabapentin 300 MG CAP PO SCH ×2 (13:56→20:11)
[2018-11-16] MEDS: Acetaminophen 500 MG TAB PO SCH ×2 (13:56→19:56)
[2018-11-16] MEDS: Sodium Chloride 0.9% 1,000 ML IV SCH (13:56)
[2018-11-16] MEDS: Ibuprofen 600 MG TAB PO SCH ×2 (13:56→23:22)
[2018-11-16] MEDS ORDERED: Magnesium 2 GM/50 ML 2 GM in Premix Bag 1 BAG IVPB SCH (14:45)
[2018-11-16] MEDS ORDERED: Potassium Phosphate 30 MMOL in Sodium Chloride 0.9% 500 ML IVPB SCH (15:00)
--- NOTE | 2018-11-16 16:05 | HP ---
CHIEF COMPLAINT: Left hip pain. HISTORY: Ms. Villagomez is a 78-year-old woman, who slipped and fell in the shower. She did not have any dizziness, lightheadedness, or loss of balance. She did not hit anything else on the way down or have any loss of consciousness. She was unable to walk and was taken to the emergency room. PAST MEDICAL HISTORY: Hypothyroidism, orthostatic hypotension, hiatal hernia, history of atrial fibrillation, hypertension, asthma, and hyperlipidemia. PAST SURGICAL HISTORY: Laparoscopic hiatal hernia repair, right ORIF of tib-fib and ankle in the , partial hysterectomy and tonsillectomy. SOCIAL HISTORY: The patient does not smoke, drink, or use illicit drugs. OUTPATIENT MEDICATIONS: Include; 1. Benefiber. 2. Synthroid. 3. Pentoxifylline. 4. Dipyridamole. 5. Prednisone 2 mg p.o. daily. 6. Atorvastatin. 7. Gabapentin. 8. Vitamins. 9. Metoprolol. 10. Albuterol nasal spray. 11. Montelukast nasal spray. ALLERGIES: THE PATIENT HAS ADVERSE DRUG REACTIONS TO ASPIRIN, CODEINE, DARVON, IODINE, NEOMYCIN, SULFA, TETRACYCLINE, , LANOLIN, AND ETHYLENEDIAMINE. REVIEW OF SYSTEMS: Ten system review of systems is negative except per HPI. The patient's reflux and diarrhea have completely resolved since her laparoscopic hiatal hernia repair last year. She has not had any palpitations recently and in fact to the very low resting heart rate in the 40s to 50s. PHYSICAL EXAMINATION: VITAL SIGNS: Temperature 97.5, heart rate 54, blood pressure 138/60, respirations 16, and 95% saturated on room air. GENERAL: Reveals a healthy-appearing elderly woman, in no acute distress. No jaundice or icterus. She is not flushed or toxic. NECK: Supple without lymphadenopathy. No midline tenderness. No trauma to the head or face. HEART: Slow, but regular without any murmurs, rubs, or gallops. LUNGS: Clear without wheezing. ABDOMEN: Soft, nontender, and nondistended. EXTREMITIES: She has pain in the left hip and her left leg is foreshortened and internally rotated. She does have pedal pulses. No swelling or instability of the ankle or knee. Normal distal sensation and movement of the foot. NEUROLOGIC: No focal deficits. PSYCHIATRIC: Alert, oriented, and appropriate. DIAGNOSTIC DATA: White count is 10, hematocrit 33, and platelets 178. Potassium is slightly low at 3.4, but other electrolytes and LFTs are unremarkable. Chest and pelvis x-rays are examined. Chest does not show any acute abnormalities. Pelvis shows an intertrochanteric fracture on the left. ASSESSMENT AND PLAN: Intertrochanteric left femur fracture, going for operative repair today. She has tolerated laparoscopic hiatal hernia repair last April, although she does have some postoperative atrial fibrillation. She is anemic, but her hemoglobin has been stable since postoperatively in April. This is likely a combination of operative blood loss and she should probably get some iron supplementation for this as well. She is on prednisone at home, but this is a very low dose and we will resume this postoperatively. She is on metoprolol for hypertension, but has a very low resting heart rate. However, she does have a history of postoperative atrial fibrillations, so I will continue this with monitoring of her vital signs. Job ID: [id number]
[2018-11-16] MEDS ORDERED: Glycopyrrolate 0.2 MG/ML 5 ML SYRINGE ONE (16:35)
[2018-11-16] MEDS ORDERED: PROPOFOL 200 MG/20 ML VIAL ONE (16:35)
[2018-11-16] MEDS ORDERED: ePHEDrine 50 MG/ML VIAL ONE (16:35)
[2018-11-16] MEDS ORDERED: Ondansetron PF 4 MG/2 ML Vial ONE (16:35)
[2018-11-16] MEDS ORDERED: Rocuronium Bromide 10 MG/ML (10ML VIAL) ONE (16:35)
[2018-11-16] MEDS ORDERED: Ketorolac Tromethamine 30 MG/ML VIAL ONE (16:35)
[2018-11-16] MEDS ORDERED: Lidocaine 1% PF 5 ML VIAL ONE (16:35)
[2018-11-16] MEDS ORDERED: Metoclopramide HCl 10 MG/2 ML VIAL ONE (16:35)
[2018-11-16] MEDS: CEFAZOLIN 2 GM in Premix Bag 1 BAG IVPB SCH (17:23)
[2018-11-16] MEDS: Atorvastatin Calcium 20 MG TAB PO SCH (20:07)
[2018-11-16] MEDS: Famotidine 20 MG TAB PO SCH (20:09)
[2018-11-16] MEDS: Montelukast Sodium 10 mg Tablet PO SCH (20:11)
[2018-11-16] MEDS ORDERED: Fluticasone Propionate Nasal Spray 16 gm Bottle NASAL SCH (21:00)
[2018-11-16] MEDS ORDERED: Metoprolol Tartrate 25 MG TAB PO SCH (21:00)
[2018-11-16] MEDS ORDERED: DIPYRIDAMOLE 75 MG PO SCH ×2 (21:00)
[2018-11-16] MEDS: Senokot S 8.6-50 MG TAB PO SCH (21:40)
[2018-11-17] MEDS: CEFAZOLIN 2 GM in Premix Bag 1 BAG IVPB SCH (01:33)
[2018-11-17] MEDS: Acetaminophen 500 MG TAB PO SCH ×4 (01:37→21:09)
[2018-11-17] MEDS: Sodium Chloride 0.9% 1,000 ML IV SCH (01:37)
[2018-11-17] MEDS: Ibuprofen 600 MG TAB PO SCH ×3 (05:52→22:21)
[2018-11-17] MEDS: Levothyroxine Sodium 50 MCG TAB PO SCH (05:53)
[2018-11-17 07:16] LABS: Hemoglobin 7.3 g/dL (12.0-16.0); Mean Corpuscular HGB CONC 33.3 g/dL (32.0-36.0); Mean Corpuscular Hemoglobin 32.1 pg (27.0-31.0); Mean Corpuscular Volume 96.5 fL (78.0-98.0); Mean Platelet Volume 9.9 fL (7.4-10.4); Platelet Count 130 thou/uL (130-400); RBC Distribution Width 12.6 % (11.5-14.5); Red Blood Cell (RBC) Count 2.28 mill/uL (4.20-5.40); White Blood Cell (WBC) Count 5.7 thou/uL (4.8-10.8)
[2018-11-17 07:34] LABS: Anion Gap 10 mmol/L (10-20); BUN (Urea Nitrogen) 15 mg/dL (9.8-20.1); Calc. Creatinine Clearance 60 mL/min (70-130); Calcium 7.7 mg/dL (7.8-10.44); Carbon Dioxide 22 mmol/L (23-31); Chloride 109 mmol/L (98-107); Estimated GFR-MDRD 70; Glucose 112 mg/dL (83-110); Magnesium 2.2 mg/dL (1.6-2.6); Potassium 4.7 mmol/L (3.5-5.1); Sodium 136 mmol/L (136-145)
[2018-11-17 08:11] LABS: Band 1 % (5-11); Eosinophils 1 % (0-10); Lymphocytes 11 % (21-51); MDiff Complete? YES; Monocytes 13 % (0-10); Neutrophil 73 % (42-75); Platelet Morphology Comment Appears Adequate; Polychromasia SLIGHT = 2-3 cells (100X) (0-2/hpf); Reactive Lymphocytes 1 % (0-10)
[2018-11-17] MEDS ORDERED: Hydrocortisone Sod Succ/PF 100 mg/2 ml Vial IVP SCH (08:30)
--- NOTE | 2018-11-17 08:32 | OP ---
DATE OF PROCEDURE: 11/16/2018 PREOPERATIVE DIAGNOSIS: Intertrochanteric fracture, left hip. POSTOPERATIVE DIAGNOSIS: Intertrochanteric fracture, left hip. PROCEDURE PERFORMED: Open reduction and internal fixation of left hip. FINANCIAL SERVICES SALES REPRESENTATIVE: Dennis Torres PA-C BLOOD LOSS: 200. SPECIMEN: None. DRAINS: None. COMPLICATIONS: None. IMPLANTS USED: Teena TFN-A 130 degree short nail with 105 lag screw and a 34 locking screw. PROCEDURE IN DETAIL: After informed consent was obtained in the preoperative holding area, the patient was taken to the operative suite and positioned appropriately on the fracture table. Spinal anesthetic was placed and the left hip was then prepped and draped in the usual sterile fashion. Prior to incision, a time-out was called and all members of surgical team agreed upon site, surgeon, and patient. Patient also received preoperative antibiotics prior to incision. Once this was confirmed, fluoroscopy was brought into the field and we evaluated the reduction. The fracture table was used with inline longitudinal traction and adduction to appropriately reduce the fracture. Once we were happy with near anatomic reduction, we then made a linear incision 2 fingerbreadths above the greater trochanter noted by palpation. The subcutaneous layers were opened sharply. I encountered the IT band. This was incised sharply and blunt dissection using a finger was then carried down to the trochanter which was noted by palpation. We used a guidepin to enter the posterior 2/3 of the greater trochanter. Guidepin was then used to enter the canal, over reamed with a 15 mm entry reamer. Once this was established, the prosthesis was then slid down into place and malleted gently to the adequate height and noted with fluoroscopy. The lateral entry outrigger was then placed and we used a 2-incision technique to establish the hip screw fixation point. A guidepin was then placed into the femoral head using the outrigger. The measurement was taken. The appropriate size was chosen. Lateral entry broaching reamer was then used using the outrigger and the final screw was then placed. The anti-rotational gate was then closed and the distal interlocking screw was placed for final construct, which appeared near anatomic on radiographs. Both incisions (2-incision technique) were copiously irrigated with normal saline. Primary closure was accomplished with #1 Vicryl at the IT band. Subcutaneous layer was closed with 2-0 Vicryl, and stainless steel carlos were used to reapproximate the skin. Final x-rays demonstrated near anatomic reduction, good hardware fixation. The procedure was terminated without any complications. The patient was taken to recovery room in stable condition. Job ID: [id number]
[2018-11-17] MEDS ORDERED: Metoprolol Tartrate 25 MG TAB PO SCH (09:00)
[2018-11-17] MEDS ORDERED: Non-Formulary Item 1 EACH (Biotin [Biotin] 5,000 MCG) PO SCH (09:00)
[2018-11-17] MEDS ORDERED: Vitamin E 400 UNITS CAP PO SCH (09:00)
[2018-11-17 09:02] LABS: #Monocytes 0.9 thou/uL (0.11-0.59); #Neutrophils 4.1 thou/uL (1.40-6.50); %Basophils 0.2 % (0.0-1.0); %Eosinophils 0.7 % (0.0-10.0); %Lymphocytes 17.2 % (21.0-51.0); %Monocytes 14.1 % (0.0-10.0); %Neutrophils 67.8 % (42.0-75.0); Hemoglobin 7.6 g/dL (12.0-16.0); Mean Corpuscular HGB CONC 32.5 g/dL (32.0-36.0); Mean Corpuscular Hemoglobin 31.8 pg (27.0-31.0); Mean Platelet Volume 9.2 fL (7.4-10.4); Platelet Count 142 thou/uL (130-400); RBC Distribution Width 12.6 % (11.5-14.5); White Blood Cell (WBC) Count 6.1 thou/uL (4.8-10.8)
[2018-11-17] MEDS: Calcium Carbonate 600 MG TAB PO SCH (09:28)
[2018-11-17] MEDS: Multivitamin W/ Minerals 1 TAB PO SCH (09:29)
[2018-11-17] MEDS: Famotidine 20 MG TAB PO SCH ×2 (09:29→21:11)
[2018-11-17] MEDS: Ferrous Gluconate 324 MG TAB PO SCH ×2 (09:29→21:11)
[2018-11-17] MEDS: Polyethylene Glycol 3350 17 GM Packet PO SCH (09:30)
[2018-11-17] MEDS: Senokot S 8.6-50 MG TAB PO SCH ×2 (09:30→21:13)
[2018-11-17] MEDS: Vitamin E 400 UNITS CAP PO SCH (09:30)
[2018-11-17] MEDS: Gabapentin 300 MG CAP PO SCH ×3 (09:30→21:11)
[2018-11-17] MEDS: Zinc Sulfate 220 MG CAP PO SCH (09:31)
[2018-11-17] MEDS: Enoxaparin Sodium 30 MG/0.3 ML SYRINGE SC SCH (09:35)
--- NOTE | 2018-11-17 10:04 | PRG ---
DATE OF SERVICE: 11/17/2018 SUBJECTIVE: Charleen is a 78-year-old white female, postop day 1 from a left hip intertrochanteric nail fixation due to fall. She is doing relatively well today. Her hemoglobin and hematocrit are 7.3 and 22, but she is yet to ambulate, walk, stand, and see if she can tolerate this. She has very little in the way of complaints of pain. She is quite comfortable. OBJECTIVE: VITAL SIGNS: Temperature 98, pulse 60, respiratory rate is 20 and nonlabored, O2 saturations 95% on 1.5 L nasal cannula, blood pressure is 109/53. GENERAL: She is alert, appropriate, and responsive with examiner. Grossly nonfocal. EXTREMITIES: Her incision is clean without any strikethrough. She is neurovascularly intact in both lower extremities. No shortening or external rotation is appreciated. IMPRESSION: A 78-year-old white female, postop day 1, left hip intertrochanteric nail fixation. PLAN: 1. Continue current care. Defer transfusion to primary admitting team which is trauma. 2. Continue to follow placement. Job ID: [id number]
--- NOTE | 2018-11-17 12:31 | PRG ---
DATE OF SERVICE: 11/17/2018 SUBJECTIVE: Ms. Villagomez is a 78-year-old woman, who is postoperative day #1 status post open reduction and internal fixation of the left hip. The patient reports adequate pain control this morning. Nursing reports the patient with hypotension this morning. She had just completed a course of prednisone therapy. OBJECTIVE: VITAL SIGNS: This morning include blood pressure 109/53, pulse 56, respiratory rate 20, temperature 98 degrees Fahrenheit, oxygen saturation 95% on room air. HEENT: Reveals pupils are equal, round, and reactive to light and accommodation. NECK: She has no jugular venous distention noted. HEART: Reveals regular rate with mild bradycardia. No murmurs or gallops auscultated. LUNGS: Clear to auscultation bilaterally. Breathing, regular and nonlabored. ABDOMEN: Soft, nontender, and nondistended. EXTREMITIES: Reveal 2+ radial and pedal pulses bilaterally. No ankle edema is present. NEUROLOGIC: Reveals no focal deficits present. LABORATORY FINDINGS: This morning include CBC with 6100 white blood cells, hemoglobin and hematocrit 7.3 and 22.0 respectively, platelet count is 130,000. Metabolic profile; sodium 136, potassium is 4.7, chloride is 109, bicarb is 22, BUN is 15, creatinine is 0.80, glucose is 112. Magnesium is 2.2. Phosphorus is 4.0. IMPRESSION: 1. Postoperative day #1 status post open reduction and internal fixation, left hip. 2. Acute blood loss anemia. 3. Suspected acute adrenal insufficiency given the recent course of prednisone, which has just been stopped prior to surgery. PLAN: 1. The patient will be transfused with 1 unit of packed red blood cells. 2. We will also give the patient some hydrocortisone. 3. We will initiate physical therapy once blood pressure has improved. Above findings and plan were discussed with the patient, who indicates understanding of information given. I have answered her questions. Job ID: [id number] MTDD
--- NOTE | 2018-11-17 13:12 | RAD ---
Left ankle 3 views HISTORY: Left ankle injury. FINDINGS: Ankle mortise and talar dome are intact. Mild osteophytosis. Soft tissue swelling over the medial and lateral malleoli. No acute fracture or dislocation are apparent. Prominent calcification of the arterial structures. IMPRESSION: Soft tissue swelling. No acute osseous abnormalities are demonstrated. Atherosclerosis.
[2018-11-17 15:50] LABS: Hemoglobin 9.7 g/dL (12.0-16.0); Mean Corpuscular HGB CONC 32.9 g/dL (32.0-36.0); Mean Corpuscular Hemoglobin 31.5 pg (27.0-31.0); Mean Corpuscular Volume 95.7 fL (78.0-98.0); Mean Platelet Volume 9.7 fL (7.4-10.4); Platelet Count 136 thou/uL (130-400); RBC Distribution Width 12.8 % (11.5-14.5); Red Blood Cell (RBC) Count 3.08 mill/uL (4.20-5.40); White Blood Cell (WBC) Count 7.1 thou/uL (4.8-10.8)
[2018-11-17] MEDS: Montelukast Sodium 10 mg Tablet PO SCH (21:10)
[2018-11-17] MEDS: Atorvastatin Calcium 20 MG TAB PO SCH (21:11)
[2018-11-17] MEDS: Hydrocortisone Sod Succ/PF 100 mg/2 ml Vial IVP SCH (21:13)
--- NOTE | 2018-11-17 22:37 | CON ---
DATE OF CONSULTATION: HISTORY OF PRESENT ILLNESS: Charleen Villagomez is a 78-year-old white female, who has been evaluated by Dr. Soliz in the past. She was admitted in April 2018 with gastrointestinal hemorrhage and developed rapid tachycardia. She was seen by Electrophysiology for consultation and it was felt that this was very rapid atrial fibrillation with ventricular rates as high as 300 per minute. She denies any chest pain or shortness of breath. Echocardiogram revealed ejection fraction of 50% to 55% with mildly dilated left atrium, mild to moderate mitral regurgitation, mild aortic regurgitation, mild tricuspid regurgitation. With her gastrointestinal bleed, she was not a candidate for oral anticoagulation. Her atrial fibrillation episodes were very brief. She was discharged on a month long monitor and according to the patient, she did not have any significant arrhythmias on that. She did see Dr. Soliz once in the office on September 05, 2018. She had undergone hiatal hernia surgery and was feeling much better. She now is admitted after a fall at home in the shower, sustaining left hip fracture. She underwent ORIF of that yesterday. She denies any lightheadedness or loss of consciousness with her fall. PAST MEDICAL HISTORY: GE reflux, dyslipidemia, asthma, osteoporosis, hypothyroidism, orthostatic hypotension, history of atrial fibrillation, hypertension. MEDICATIONS: 1. Atorvastatin 20 q.h.s. 2. Biotin 5000 mcg daily. 3. Caltrate 600 daily. 4. Dipyridamole 75 b.i.d. 5. Gabapentin 300 t.i.d. 6. Levothyroxine 50 mcg daily. 7. Metoprolol 12.5 mg daily. 8. Montelukast 10 mg daily. 9. Trental 40 mg b.i.d. 10. Prednisone 2 mg q.a.m. 11. Vitamin E. 12. Zinc. ALLERGIES: ASPIRIN, SULFA, TETRACYCLINE, IODINE, LANOLIN, NEOMYCIN, THIMEROSAL, BACITRACIN, CODEINE, PERFUME, DARVON, ETHYLENEDIAMINE. SOCIAL HISTORY: She does not smoke or drink. FAMILY HISTORY: Positive for coronary artery disease. REVIEW OF SYSTEMS: A 10-point review of systems is otherwise unremarkable. PHYSICAL EXAMINATION: VITAL SIGNS: Blood pressure 142/64, pulse 64, sinus rhythm on the monitor. HEENT: PERRL. CHEST: Clear. CARDIAC: S1 and S2 normal without any S3 or S4. There is a 1/6 holosystolic murmur at the apex. ABDOMEN: Normal bowel sounds without tenderness or organomegaly. EXTREMITIES: Revealed no clubbing, cyanosis, or edema. NEUROLOGIC: Grossly intact. SKIN: Warm and dry. LABORATORY DATA: EKG reveals normal sinus rhythm, with an incorrect computer interpretation of junctional rhythm. There is low voltage. Hemoglobin 9.7, hematocrit 29.5, white count 7100, platelets 136,000. Sodium 136, potassium 4.7 , chloride 109, carbon dioxide 22, BUN 15, and creatinine 0.80. IMPRESSION: 1. Status post left hip open reduction and internal fixation. 2. Episodes of rapid atrial fibrillation with rates up to 300 per minute in the past, although episodes were very short lived and in general asymptomatic. She has not had any arrhythmias during this admission. 3. History of gastrointestinal hemorrhage. 4. Asthma. 5. Dyslipidemia. PLAN: The patient will be restarted on her metoprolol tomorrow. We will continue to watch her for significant arrhythmias, but she has not had any at this time. Hopefully, she will be able to move to rehab in 2 to 3 days. Job ID: [id number] [facility]
[2018-11-18] MEDS: Acetaminophen 500 MG TAB PO SCH ×4 (02:02→19:53)
[2018-11-18] MEDS: Hydrocortisone Sod Succ/PF 100 mg/2 ml Vial IVP SCH ×2 (04:43→14:05)
[2018-11-18] MEDS: Levothyroxine Sodium 50 MCG TAB PO SCH (05:08)
[2018-11-18] MEDS: Ibuprofen 600 MG TAB PO SCH ×3 (05:08→20:33)
[2018-11-18 06:57] LABS: #Lymphocytes 0.4 thou/uL (1.20-3.40); #Monocytes 0.6 thou/uL (0.11-0.59); #Neutrophils 5.4 thou/uL (1.40-6.50); %Basophils 0.1 % (0.0-1.0); %Lymphocytes 6.8 % (21.0-51.0); %Monocytes 9.8 % (0.0-10.0); %Neutrophils 83.3 % (42.0-75.0); Hemoglobin 8.9 g/dL (12.0-16.0); Mean Corpuscular HGB CONC 33.5 g/dL (32.0-36.0); Mean Corpuscular Hemoglobin 32.1 pg (27.0-31.0); Mean Corpuscular Volume 95.8 fL (78.0-98.0); Mean Platelet Volume 9.7 fL (7.4-10.4); Platelet Count 125 thou/uL (130-400); RBC Distribution Width 13.1 % (11.5-14.5); Red Blood Cell (RBC) Count 2.78 mill/uL (4.20-5.40); White Blood Cell (WBC) Count 6.4 thou/uL (4.8-10.8)
[2018-11-18 07:30] LABS: Anion Gap 8 mmol/L (10-20); BUN (Urea Nitrogen) 15 mg/dL (9.8-20.1); Calc. Creatinine Clearance 66 mL/min (70-130); Carbon Dioxide 24 mmol/L (23-31); Chloride 109 mmol/L (98-107); Estimated GFR-MDRD 77; Glucose 129 mg/dL (83-110); Magnesium 2.4 mg/dL (1.6-2.6); Phosphorus 2.7 mg/dL (2.3-4.7); Potassium 4.3 mmol/L (3.5-5.1); Sodium 137 mmol/L (136-145)
[2018-11-18] MEDS: Multivitamin W/ Minerals 1 TAB PO SCH (09:27)
[2018-11-18] MEDS: Vitamin E 400 UNITS CAP PO SCH (09:27)
[2018-11-18] MEDS: Calcium Carbonate 600 MG TAB PO SCH (09:28)
[2018-11-18] MEDS: Famotidine 20 MG TAB PO SCH ×2 (09:28→20:33)
[2018-11-18] MEDS: Senokot S 8.6-50 MG TAB PO SCH ×2 (09:28→20:32)
[2018-11-18] MEDS: Polyethylene Glycol 3350 17 GM Packet PO SCH (09:31)
[2018-11-18] MEDS: Enoxaparin Sodium 30 MG/0.3 ML SYRINGE SC SCH (09:31)
[2018-11-18] MEDS: Zinc Sulfate 220 MG CAP PO SCH (10:34)
[2018-11-18] MEDS: Gabapentin 300 MG CAP PO SCH ×3 (10:34→20:33)
[2018-11-18] MEDS: Ferrous Gluconate 324 MG TAB PO SCH ×2 (10:34→20:33)
--- NOTE | 2018-11-18 16:35 | PRG ---
DATE OF SERVICE: 11/18/2018 SUBJECTIVE: The patient is hospital day 3, postop day #2, status post open reduction and internal fixation of left hip fracture sustained from a ground level fall. The patient was on the telemetry floor due to atrial fibrillation, which has resolved. The patient is currently in sinus rhythm and rate controlled. She is tolerating a diet. Her pain is controlled and she has begun working with Physical and Occupational Therapy. She is also awaiting placement to [facility]. OBJECTIVE: VITAL SIGNS: Temperature is 98.2, heart rate 65, blood pressure 134/70, respirations 20, and oxygen saturations 95% on 2 L via nasal cannula. GENERAL: The patient is resting comfortably in bed. She is awake, alert, and oriented x3. Dexter Coma Scale is 15. She is appropriate. HEENT: Unremarkable. LUNGS: Clear to auscultation with good inspiratory and expiratory effort. HEART: Regular rate and rhythm. ABDOMEN: Soft, flat, nontender with active bowel sounds. EXTREMITIES: Neurovascularly intact x4. LABORATORY FINDINGS: White blood cell count 6.4, hemoglobin 8.9, hematocrit 26.6, platelets 125. Sodium 137, potassium 4.3, chloride 109, CO2 of 24, BUN 15, creatinine 0.73, glucose 129, magnesium 2.4, phosphorus 2.7. There are no radiographs reviewed this morning. ASSESSMENT: 1. Status post ground level fall. 2. Status post open reduction and internal fixation of left hip fracture. 3. Acute blood loss anemia, stable. PLAN: Plan will be to continue supportive care, physical and occupational therapy. Await placement. The patient was able to tell us this morning that she is on her prednisone for her allergies, which she states she takes 2 mg a day and ever since she has started that she has not required to use her inhaler or nebulizer. So, we will resume this. The evaluation and examination were done with Dr. Atkins this morning during rounds. Job ID: [id number]
[2018-11-18] MEDS: Atorvastatin Calcium 20 MG TAB PO SCH (20:32)
[2018-11-18] MEDS: Montelukast Sodium 10 mg Tablet PO SCH (20:33)
[2018-11-19] MEDS: Acetaminophen 500 MG TAB PO SCH ×3 (02:01→14:13)
[2018-11-19] MEDS: Levothyroxine Sodium 50 MCG TAB PO SCH (05:03)
[2018-11-19] MEDS: Ibuprofen 600 MG TAB PO SCH ×2 (05:03→14:13)
[2018-11-19] MEDS ORDERED: predniSONE 1 MG TAB PO SCH (08:00)
[2018-11-19] MEDS: Senokot S 8.6-50 MG TAB PO SCH (08:58)
[2018-11-19] MEDS: Multivitamin W/ Minerals 1 TAB PO SCH (08:59)
[2018-11-19] MEDS: Calcium Carbonate 600 MG TAB PO SCH (08:59)
[2018-11-19] MEDS: Enoxaparin Sodium 30 MG/0.3 ML SYRINGE SC SCH (08:59)
[2018-11-19] MEDS: Famotidine 20 MG TAB PO SCH (09:00)
[2018-11-19] MEDS: Gabapentin 300 MG CAP PO SCH ×2 (09:00→14:14)
[2018-11-19] MEDS: Ferrous Gluconate 324 MG TAB PO SCH (09:01)
[2018-11-19] MEDS: Vitamin E 400 UNITS CAP PO SCH (09:01)
[2018-11-19] MEDS: Polyethylene Glycol 3350 17 GM Packet PO SCH (09:01)
[2018-11-19] MEDS: Zinc Sulfate 220 MG CAP PO SCH (09:02)
[2018-11-19 16:01] VITALS: BP 124/75; TEMP 97.7
== END 2018-11-19 17:04 | DRG 481 ==
LOC: ERS 06:41 → SDC 08:56 → SURG A 09:25 → 2NO 15:35 → SURG A 11-18 20:13
PROVIDERS: ADMIT Orthopaedic Surgery; ATTEND Orthopaedic Surgery
PROC: 0QS704Z Reposition Left Upper Femur with Internal Fixation Device, Open Approach (ICD-10-PCS; principal; 2018-11-16)
PROC: 30233N1 Transfusion of Nonautologous Red Blood Cells into Peripheral Vein, Percutaneous Approach (ICD-10-PCS; 2018-11-17)
DX: S72.142A Displaced intertrochanteric fracture of left femur, initial encounter for closed fracture (principal); D62 Acute posthemorrhagic anemia; E27.40 Unspecified adrenocortical insufficiency; W01.0XXA Fall on same level from slipping, tripping and stumbling without subsequent striking against object, initial encounter; Y92.012 Bathroom of single-family (private) house as the place of occurrence of the external cause; I95.1 Orthostatic hypotension; K21.9 Gastro-esophageal reflux disease without esophagitis; M81.0 Age-related osteoporosis without current pathological fracture; E03.9 Hypothyroidism, unspecified; I10 Essential (primary) hypertension; E87.6 Hypokalemia; J45.909 Unspecified asthma, uncomplicated; I48.91 Unspecified atrial fibrillation; Z90.710 Acquired absence of both cervix and uterus; Z79.899 Other long term (current) drug therapy; Z88.2 Allergy status to sulfonamides; Z88.8 Allergy status to other drugs, medicaments and biological substances; Z88.5 Allergy status to narcotic agent
CPT/HCPCS: 36415; 36416; 36430; 71045; 72170; 76000; 80048; 80053; 83735; 84100; 85025; 86850; 86900; 86901; 93005; 93010; 96365; C1713; C1769; G0390; J0131; J0690; J1650; J1720; J1885; J2001; J2405; J2704; J2765; J3010; J3475; J3490; J7050; P9016

== ENCOUNTER 2019-08-22 17:57 | Observation (INO) | payer MEDICARE ==
[2019-08-22] MEDS ORDERED: Acetaminophen 500 MG TAB ONE (19:14)
[2019-08-22] MEDS ORDERED: traMADol HCl 50 MG TAB PO PRN (20:30)
[2019-08-22] MEDS ORDERED: Sodium Chloride 0.9% 1,000 ML IV SCH (20:30)
[2019-08-22] MEDS ORDERED: Ondansetron PF 4 MG/2 ML Vial IVP PRN (20:30)
[2019-08-22] MEDS ORDERED: Senokot S 8.6-50 MG TAB PO PRN (20:30)
[2019-08-22] MEDS ORDERED: Acetaminophen 325 MG TAB PO PRN (20:30)
[2019-08-22] MEDS ORDERED: Nitroglycerin 0.4 MG TAB (25 Tab Bottle) PO PRN (20:30)
[2019-08-22] MEDS ORDERED: Guaifenesin DM 100-10/5 ML UDCUP PO PRN (20:30)
[2019-08-22] MEDS ORDERED: Bisacodyl 10 MG SUPP PR PRN (20:30)
[2019-08-22] MEDS ORDERED: Atorvastatin Calcium 20 MG TAB PO SCH (21:00)
[2019-08-22] MEDS ORDERED: DIPYRIDAMOLE 75 MG PO SCH (21:00)
--- NOTE | 2019-08-22 21:12 | HP ---
REASON FOR ADMISSION: Chest pain and near syncope. HISTORY OF PRESENTING ILLNESS: The patient gives history of feeling faint early this morning. She tried to sit down and take deep breaths to prevent from passing out. This happened 2 to 3 times and the patient finally developed left-sided chest pain, which was 8/10 in intensity. She says this is right beneath her left breast. She does mention that her pain is still present. She has been having some coughing episodes at night, but no sputum production. No fever at home. No complaints of palpitations, PND, or orthopnea. The patient does not recall if her heart beats lower. She has seen Dr. Ponce at [facility] in the past and has been released from their service as she was healthy. Her last stress test was before April 2018, which was normal as far as she knows. No prior stents or coronary artery disease. She has also seen Dr. Banda in the past and has had a Holter placed on her last year, which did not reveal any arrhythmias. Has not had any radiation of her chest pain. 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 CURRENT MEDICATIONS: The patient is on, 1. Levothyroxine 50 mcg p.o. daily. 2. Dipyridamole 75 mg twice daily. 3. Lipitor 20 mg p.o. at bedtime. 4. Gabapentin 300 mg p.o. three times daily. 5. Calcium carbonate 600 mg p.o. daily. 6. Metoprolol extended release 12.5 mg daily. 7. Singulair 10 mg daily. 8. Pentoxifylline 400 mg twice daily. 9. Prednisone 2 mg p.o. q.a.m. ALLERGIES: THE PATIENT HAS MULTIPLE ALLERGIES INCLUDING ASPIRIN, SULFA, TETRACYCLINE, IODINE, LANOLIN, NEOMYCIN, THIMEROSAL, BACITRACIN, CODEINE, PROPOXYPHENE, AND ETHYLENEDIAMINE. PERSONAL HISTORY: Does not abuse alcohol or drugs. No history of smoking. She ambulates with a walker. She currently lives with her second son, who has paraplegia. FAMILY HISTORY: Mother at the age of 81. She has had history of CHF and emphysema. Father at the age of 83. He had a history of fall and had a PEG tube placement with complications. CODE STATUS: Full. Power of real estate attorney is her older son, Mr. Marquise Villagomez. REVIEW OF SYSTEMS: CONSTITUTIONAL: Negative for weight loss or gain, ability to conduct usual activities. SKIN: Negative for rash, itching. EYES: Negative for double vision, pain. ENT/MOUTH: Negative for nose bleeding, neck stiffness, pain, tenderness. CARDIOVASCULAR: Negative for palpitations, dyspnea on exertion, orthopnea. RESPIRATORY: Negative for shortness of breath, wheezing, cough, hemoptysis, fever or night sweats. GASTROINTESTINAL: Negative for poor appetite, abdominal pain, heartburn, nausea, vomiting, constipation, or diarrhea. GENITOURINARY: Negative for urgency, frequency, dysuria, nocturia. MUSCULOSKELETAL: Negative for pain, swelling. NEUROLOGIC/PSYCHIATRIC: Negative for anxiety, depression. ALLERGY/IMMUNOLOGIC: Negative for skin rash, bleeding tendency. PHYSICAL EXAMINATION: GENERAL: The patient is a 79-year-old female, who is currently not in any acute distress. VITAL SIGNS: Blood pressure 156/70, pulse 45 to 50 per minute, respiratory rate 18 per minute, temperature 98 degrees Fahrenheit, and saturating 95% on room air. NECK: Supple. No elevated JVD. HEENT: Eyes; extraocular muscles intact. Pupils reacting to light. Oral cavity, mucous membranes are moist. No exudates or congestion. CARDIOVASCULAR: S1 and S2 heard. Bradycardic. RESPIRATORY: Air entry 1+ bilateral. No rales or rhonchi. ABDOMEN: Soft. Bowel sounds heard. No tenderness, rigidity, or guarding. EXTREMITIES: No peripheral edema or calf tenderness. VASCULAR: Peripheral pulses 1+ bilateral. No ischemic ulcerations or gangrene. CENTRAL NERVOUS SYSTEM: No gross focal deficits noted. The patient is alert, awake, and oriented well. PSYCHIATRIC: The patient's mood is euthymic. No hallucinations or delusions. LABORATORY DATA: Chest x-ray done shows no acute intrathoracic disease. EKG done shows sinus bradycardia at 47 beats per minute. UA shows signs of UTI. Troponin x2 negative. Alkaline phosphatase 152, AST and ALT within normal limits. Albumin 4.1, lipase 24, serum bicarb 21, BUN 14, creatinine 0.8. H and H 13 and 41, platelet count 196 with 84% neutrophils, MCV is 99. CLINICAL IMPRESSION AND PLAN: The patient will be under observation on telemetry for recurrent episodes of near-syncope and chest pain. She also has sinus bradycardia. We will hold her Toprol-XL, which is a very small dose. The patient will be closely monitored on telemetry. We will also consult Dr. Barba in view of chest pain, near-syncope, and bradycardia. The patient is allergic to aspirin, but she is on pentoxifylline and will continue same home dose. The patient is also chronically on low-dose prednisone for seasonal allergies per patient. We will continue Lipitor, Neurontin, Synthroid, and Ultram as before. Nuclear stress test will be obtained. Echo with 2D Doppler for LV function and to rule out valve abnormalities. We will closely monitor her on telemetry. She is currently a full code. The patient did mention to me that if she were to be in a bad state, she would not want to be resuscitated if there is no hope for a full functional recovery. Job ID: [id number]
[2019-08-22 22:17] VITALS: BMI 24.3
[2019-08-22 22:45] LABS: Troponin I Less than 0.010 ng/mL (< 0.028)
[2019-08-22] MEDS: Famotidine 20 MG TAB PO SCH (22:53)
[2019-08-22] MEDS: Gabapentin 300 MG CAP PO SCH (22:54)
[2019-08-23 01:45] LABS: Troponin I 0.015 ng/mL (< 0.028)
[2019-08-23 05:23] LABS: #Eosinphils 0.4 thou/uL (0.0-0.7); #Lymphocytes 1.5 thou/uL (1.20-3.40); #Monocytes 0.8 thou/uL (0.11-0.59); #Neutrophils 2.8 thou/uL (1.40-6.50); %Basophils 0.7 % (0.0-1.0); %Eosinophils 7.2 % (0.0-10.0); %Monocytes 13.7 % (0.0-10.0); %Neutrophils 51.4 % (42.0-75.0); Hemoglobin 11.4 g/dL (12.0-16.0); Mean Corpuscular HGB CONC 34.1 g/dL (32.0-36.0); Mean Corpuscular Hemoglobin 33.5 pg (27.0-31.0); Mean Corpuscular Volume 98.5 fL (78.0-98.0); Mean Platelet Volume 8.9 fL (7.4-10.4); Platelet Count 168 thou/uL (130-400); Red Blood Cell (RBC) Count 3.39 mill/uL (4.20-5.40); White Blood Cell (WBC) Count 5.5 thou/uL (4.8-10.8)
[2019-08-23 05:46] LABS: Anion Gap 10 mmol/L (10-20); BUN (Urea Nitrogen) 12 mg/dL (9.8-20.1); Calc. Creatinine Clearance 67 mL/min (70-130); Calcium 8.8 mg/dL (7.8-10.44); Carbon Dioxide 25 mmol/L (23-31); Cardiac Risk 2.6 (Less than 4.5); Chloride 108 mmol/L (98-107); Cholesterol 120 mg/dl (< 200 Desired); Estimated GFR-MDRD 77; Glucose 89 mg/dL (83-110); HDL Cholesterol 46 mg/dL (>60 Neg Risk); LDL Cholesterol, Calculated 58 mg/dL; Potassium 3.7 mmol/L (3.5-5.1); Sodium 139 mmol/L (136-145); Triglycerides 78 mg/dL (Less than 150)
[2019-08-23] MEDS ORDERED: Ciprofloxacin 500 MG TAB PO SCH (06:00)
[2019-08-23] MEDS ORDERED: Levothyroxine Sodium 50 MCG TAB PO SCH (06:00)
[2019-08-23] MEDS ORDERED: predniSONE 1 MG TAB PO SCH (08:00)
[2019-08-23] MEDS ORDERED: Prevnar 13-Val Conj/PF 0.5 ML SYRINGE IM ONE (09:00)
[2019-08-23] MEDS ORDERED: Enoxaparin Sodium 40 MG/0.4 ML SYRINGE SC SCH (09:00)
[2019-08-23] MEDS ORDERED: Montelukast Sodium 10 mg Tablet PO SCH (09:00)
[2019-08-23 12:21] VITALS: BP 163/70; TEMP 98.6
--- NOTE | 2019-08-23 14:03 | CON ---
DATE OF CONSULTATION: REASON FOR CONSULTATION: Chest pain. PRIMARY DIRECTIONAL BORE OPERATOR: Franklyn Soliz MD Note: The patient has not been seen in the office over the last 3 years. HISTORY OF PRESENT ILLNESS: Ms. Villagomez is a very pleasant 79-year-old woman, who recently presented with chest pressure. She states the pain is worse with movement. It is worse with sitting up and using her chest muscles. She also has pain to palpation noted overlying her left breast. No other associated ameliorating or exacerbating factors present. She has had some bradycardia and has been on low-dose beta-john therapy at home. HEART score 2. PAST MEDICAL HISTORY: Hypothyroidism, seasonal allergies, hyperlipidemia, peripheral neuropathy, hypertension, osteoporosis, hysterectomy, tonsillectomy, tib-fib surgery, asthma, paroxysmal atrial fibrillation in April [address] Banda. HOME MEDICATIONS: Include; 1. Prednisone. 2. Pentoxifylline. 3. Singulair. 4. Metoprolol. 5. Calcium. 6. Gabapentin. 7. Lipitor. 8. Dipyridamole. 9. Levothyroxine. ALLERGIES: IODINE, NEOMYCIN, BACITRACIN, AND CODEINE. SOCIAL HISTORY: No current tobacco or alcohol use. REVIEW OF SYSTEMS: A 10-point review of systems is reviewed as above, otherwise negative. PHYSICAL EXAMINATION: GENERAL: Patient is a pleasant female, who is in no acute distress. The patient appears their stated age. VITAL SIGNS: Blood pressure 142/60, pulse 58, and temperature 98.6. NEUROLOGIC: The patient is alert and oriented x3 with no focal neurologic deficits. HEENT: Sclerae without icterus. Mouth has moist mucous membranes with normal pallor. NECK: No JVD. Carotid upstroke brisk. No bruits bilaterally. LUNGS: Clear to auscultation with unlabored respirations. CHEST: Moderate pain to palpation overlying her left breast. BACK: No scoliosis or kyphosis. CARDIAC: Regular rate and rhythm with normal S1 and S2. No S3 or S4 noted. No significant rubs, murmurs, thrills, or gallops noted throughout the precordium. PMI is not displaced. There is no parasternal heave. ABDOMEN: Soft, nontender, nondistended. No peritoneal signs present. No hepatosplenomegaly. No abnormal striae. EXTREMITIES: 2+ femoral and 2+ dorsalis pedis pulses. No cyanosis, clubbing, or edema. SKIN: No gross abnormalities. PERTINENT LABORATORY DATA: Hemoglobin 11.4, hematocrit 33.4, and creatinine 0.73. Troponin negative. IMPRESSION: 1. Atypical chest pain. 2. Bradycardia. 3. Atrial fibrillation followed by Dr. Banda. RECOMMENDATIONS: Chest pain is not felt to be anginal. Her HEART score is estimated at 2 and is based on her age. Her troponin, EKG within normal limits. At this point, we will discontinue her stress test. I would treat her pain. Recommend discontinuing beta-john therapy due to heart rate in the 50s. She may benefit from a 3-week event recorder. From my standpoint will be okay to discharge home with close outpatient followup. Job ID: [id number]
[2019-08-23] MEDS: Gabapentin 300 MG CAP PO SCH (14:56)
[2019-08-23] MEDS: Famotidine 20 MG TAB PO SCH (14:56)
--- NOTE | 2019-08-24 14:09 | DIS ---
DATE OF ADMISSION: 08/22/2019 DATE OF DISCHARGE: 08/23/2019 DISCHARGE DISPOSITION: Home. PRIMARY DISCHARGE DIAGNOSES: Atypical chest pain and bradycardia. SECONDARY DISCHARGE DIAGNOSES: Hypothyroidism, dyslipidemia, hypertension, osteoporosis, and history of asthma. PROCEDURES DONE DURING HOSPITALIZATION: Chest x-ray done on the day of admission showed no active intrathoracic disease. Urine culture, no growth. H and H 11 and 33, platelet count 168 with 51% neutrophils, MCV is 98. BUN 12, creatinine 0.7. Total cholesterol 120, triglycerides 78, LDL 58, HDL 46. Troponin x3 negative. Echo with 2D Doppler showed ejection fraction of 55% to 60% with mild concentric LVH. DISCHARGE MEDICATIONS: 1. DuoNeb q.6 hourly p.r.n. 2. Lipitor 20 mg p.o. at bedtime. 3. Calcium carbonate 600 mg p.o. daily. 4. Dipyridamole 75 mg twice daily. 5. Gabapentin 300 mg 3 times daily. 6. Synthroid 50 mcg daily. 7. Singulair 10 mg daily. 8. Pentoxifylline 400 mg twice daily. 9. Prednisone 2 mg daily. 10. Zinc 50 mg daily. 11. Ciprofloxacin 500 mg p.o. twice daily for UTI for 3 days. ALLERGIES: 1. ASPIRIN. 2. SULFA. 3. TETRACYCLINE. 4. IODINE. 5. NEOMYCIN. 6. THIOMERSAL. 7. BACITRACIN. 8. CODEINE. 9. PROPOXYPHENE. 10. ETHYLENEDIAMINE. 11. NYSTATIN. INPATIENT CONSULT: Dr. Canchola. DISCHARGE PLAN: The patient to follow up with Dr. Soliz in 1 week. She needs to follow up with her primary care physician, Dr. Randolph Hayes in 1 week. BRIEF COURSE DURING HOSPITALIZATION: The patient initially came to ER with complaints of feeling faint multiple times and developing left-sided chest pain. She was bradycardic on arrival with heart rate of 46. The patient was on Toprol-XL 12.5 mg daily, which was held. She has had 4 sets of troponin, which were negative. The patient's heart rate on telemetry improved to between 55 and 60 per minute. Her echo did not reveal any wall motion abnormalities. She was evaluated by Dr. Canchola. The patient had left chest wall pain beneath her breast. In view of this, no further workup was done towards her chest pain. She remained hemodynamically stable, ambulating and eating well prior to discharge. She will follow up with Dr. Soliz in a week. Please note, I have seen and examined the patient on the day of discharge. Job ID: [id number]
== END 2019-08-23 16:02 | disposition home or self-care (01) ==
LOC: ERS 17:57 → 2SW 21:32
PROVIDERS: ADMIT Internal Medicine; ATTEND Internal Medicine
DX: R07.89 Other chest pain (principal); R00.1 Bradycardia, unspecified; R55 Syncope and collapse; E03.9 Hypothyroidism, unspecified; E78.5 Hyperlipidemia, unspecified; G62.9 Polyneuropathy, unspecified; I10 Essential (primary) hypertension; M81.0 Age-related osteoporosis without current pathological fracture; J45.909 Unspecified asthma, uncomplicated; I48.0 Paroxysmal atrial fibrillation; Z79.52 Long term (current) use of systemic steroids; Z79.899 Other long term (current) drug therapy; Z88.1 Allergy status to other antibiotic agents; Z88.2 Allergy status to sulfonamides; Z88.5 Allergy status to narcotic agent; Z88.8 Allergy status to other drugs, medicaments and biological substances; Z91.041 Radiographic dye allergy status
CPT/HCPCS: 80048; 80061; 84484 ×2; 85025; 87086; 93005; 93306; 94760; 96360; 96361; 99285; G0378 ×3; 36415

== ENCOUNTER 2023-02-13 09:57 | Outpatient (CLI) | payer MEDICARE | END 2023-02-13 09:58 | disposition home or self-care (01) | LOC: MRI 09:57 | PROVIDERS: ATTEND Family Medicine | DX: M51.36 Other intervertebral disc degeneration, lumbar region (principal); M47.816 Spondylosis without myelopathy or radiculopathy, lumbar region | CPT/HCPCS: 72148 ==

== ENCOUNTER 2023-02-27 08:48 | Outpatient (CLI) | payer MEDICARE ==
[2023-02-27] MEDS ORDERED: Iopamidol 370 76% 100 ML VIAL ONE (09:05)
== END 2023-02-27 08:49 | disposition home or self-care (01) ==
LOC: CT 08:48
PROVIDERS: ATTEND Family Medicine
DX: K86.2 Cyst of pancreas (principal); J90 Pleural effusion, not elsewhere classified; K44.9 Diaphragmatic hernia without obstruction or gangrene; N28.1 Cyst of kidney, acquired; Q44.6 Cystic disease of liver; K57.30 Diverticulosis of large intestine without perforation or abscess without bleeding
CPT/HCPCS: 74178; Q9967

== ENCOUNTER 2023-04-18 10:52 | Inpatient (IN) | payer MEDICARE ==
[2023-04-18] MEDS ORDERED: Acetaminophen 500 MG TAB ONE (11:27)
[2023-04-18 12:03] LABS: #Eosinphils 0.3 thou/uL (0.0-0.7); #Neutrophils 5.6 thou/uL (1.40-6.50); %Basophils 0.3 % (0.0-1.0); %Eosinophils 3.8 % (0.0-10.0); %Lymphocytes 11.1 % (21.0-51.0); %Monocytes 12.9 % (0.0-10.0); %Neutrophils 71.5 % (42.0-75.0); Hematocrit 33.4 % (36.0-47.0); Mean Corpuscular HGB CONC 32.9 g/dL (32.0-36.0); Mean Corpuscular Hemoglobin 31.2 pg (27.0-31.0); Mean Corpuscular Volume 94.6 fl (78.0-98.0); Mean Platelet Volume 9.9 fL (7.4-10.4); Platelet Count 294 10x3/uL (130-400); RBC Distribution Width 13.2 % (11.5-14.5); Red Blood Cell (RBC) Count 3.53 mill/uL (4.20-5.40); White Blood Cell (WBC) Count 7.8 10x3/uL (4.8-10.8)
[2023-04-18 12:30] LABS: ALT (SGPT) 9 U/L (8-55); AST (SGOT) 14 U/L (5-34); Albumin 3.3 g/dL (3.4-4.8); Alkaline Phosphatase 104 U/L (40-110); Anion Gap 13 mmol/L (10-20); BUN (Urea Nitrogen) 15 mg/dL (9.8-20.1); Bilirubin, Total 0.3 mg/dL (0.2-1.2); Calc. Creatinine Clearance 0 mL/min (70-130); Calcium 8.6 mg/dL (7.8-10.44); Carbon Dioxide 25 mmol/L (23-31); Chloride 98 mmol/L (98-107); Estimated GFR 88; Globulin 2.5 g/dL (2.4-3.5); Glucose 100 mg/dL (83-110); Lipase 22 U/L (8-78); Potassium 3.6 mmol/L (3.5-5.1); Protein, Total 5.8 g/dL (5.8-8.1); Sodium 132 mmol/L (136-145)
[2023-04-18 12:32] LABS: Troponin I 0.015 ng/mL (< 0.028)
[2023-04-18 12:40] LABS: SARS-CoV-2 NAA Rapid Test Not Detected (NotDetected)
[2023-04-18 12:51] LABS: Bacteria/HPF None Seen HPF (None Seen); Bilirubin Negative (Negative); Blood, Urine Negative (Negative); CAUTI Indications for Culture Dysuria,urgency,freq; Clarity Clear (Clear); Glucose, Urine (Dipstick) Normal (Negative); Ketone, Urine Negative (Negative); Leukocyte 25 Leu/uL (Negative); Nitrite Negative (Negative); Protein, Urine (Dipstick) Negative (Neg-Trace); RBC/HPF 0-3 HPF (0-3); Specific Gravity, Urine 1.018 (1.002-1.036); Squamous Epithelial None Seen HPF (0-3); Urobilinogen Normal mg/dL (Less than 2)
[2023-04-18 12:56] LABS: Urine Culture Reflex No No
[2023-04-18] MEDS ORDERED: Iopamidol-370 76% 500 ML MDV (1 ML CHARGE) ONE (13:30)
[2023-04-18] MEDS ORDERED: diphenhydrAMINE 50 MG/ML VIAL ONE (15:09)
[2023-04-18] MEDS ORDERED: methylPREDNISolone Sod Succ 40 MG VIAL ONE (15:09)
[2023-04-18] MEDS ORDERED: Famotidine/PF 20 mg/2ml Vial ONE (15:09)
[2023-04-18 16:04] LABS: Troponin I 0.016 ng/mL (< 0.028)
[2023-04-18] MEDS ORDERED: Ondansetron ODT 4 MG TAB PO PRN (18:15)
[2023-04-18] MEDS ORDERED: Senokot S 8.6-50 MG TAB PO PRN (18:15)
[2023-04-18] MEDS ORDERED: Calcium Carbonate 500 MG ChewTAB PO PRN (18:15)
[2023-04-18] MEDS ORDERED: Ondansetron PF 4 MG/2 ML Vial IVP PRN (18:15)
[2023-04-18 18:49] LABS: Troponin I 0.017 ng/mL (< 0.028)
[2023-04-18 19:07] LABS: Magnesium 1.7 mg/dL (1.6-2.6)
[2023-04-18] MEDS: Acetaminophen 325 MG TAB PO PRN (20:40)
[2023-04-18] MEDS: Atorvastatin Calcium 20 MG TAB PO SCH (20:41)
[2023-04-18] MEDS ORDERED: Magnesium 2 GM/50 ML(in water) 2 GM in Premix Bag 1 BAG IVPB SCH (21:00)
[2023-04-18] MEDS ORDERED: Montelukast Sodium 10 mg Tablet PO SCH (21:00)
[2023-04-18 23:31] VITALS: BMI 18.6
[2023-04-19 04:08] LABS: #Monocytes 0.6 thou/uL (0.11-0.59); %Basophils 0.4 % (0.0-1.0); %Eosinophils 0.3 % (0.0-10.0); %Lymphocytes 9.5 % (21.0-51.0); %Monocytes 8.3 % (0.0-10.0); %Neutrophils 81.1 % (42.0-75.0); Hematocrit 35.4 % (36.0-47.0); Hemoglobin 11.9 g/dL (12.0-16.0); Mean Corpuscular HGB CONC 33.6 g/dL (32.0-36.0); Mean Corpuscular Hemoglobin 31.5 pg (27.0-31.0); Mean Corpuscular Volume 93.7 fl (78.0-98.0); Mean Platelet Volume 9.9 fL (7.4-10.4); Platelet Count 320 10x3/uL (130-400); RBC Distribution Width 13.1 % (11.5-14.5); Red Blood Cell (RBC) Count 3.78 mill/uL (4.20-5.40); White Blood Cell (WBC) Count 7.4 10x3/uL (4.8-10.8)
[2023-04-19 04:30] LABS: Anion Gap 13 mmol/L (10-20); BUN (Urea Nitrogen) 12 mg/dL (9.8-20.1); Calc. Creatinine Clearance 55 mL/min (70-130); Calcium 9.2 mg/dL (7.8-10.44); Carbon Dioxide 27 mmol/L (23-31); Chloride 99 mmol/L (98-107); Estimated GFR 89; Glucose 126 mg/dL (83-110); Sodium 135 mmol/L (136-145)
[2023-04-19] MEDS: Levothyroxine Sodium 50 MCG TAB PO SCH (06:48)
[2023-04-19] MEDS: Pentoxifylline 400 MG ER.TAB PO SCH ×2 (10:18→16:20)
[2023-04-19] MEDS ORDERED: Polyethylene Glycol 3350 17 GM Packet PO PRN (14:14)
[2023-04-19] MEDS ORDERED: Atorvastatin Calcium 20 MG TAB PO SCH (21:00)
[2023-04-19] MEDS: Acetaminophen 325 MG TAB PO PRN (21:00)
[2023-04-19] MEDS ORDERED: Montelukast Sodium 10 mg Tablet PO SCH (21:00)
[2023-04-19] MEDS: predniSONE 1 MG TAB PO SCH (21:00)
[2023-04-19] MEDS: Cyanocobalamin (Vitamin B-12) 1,000 MCG TAB PO SCH (21:01)
[2023-04-19] MEDS: Atorvastatin Calcium 20 MG TAB PO SCH (21:01)
[2023-04-19] MEDS: Multivit, Therapeutic 1 TAB PO SCH (21:01)
[2023-04-19] MEDS: Folic Acid 1 MG TAB PO SCH (21:01)
[2023-04-19] MEDS: Docusate 100 MG CAP PO SCH (21:01)
[2023-04-20 05:03] LABS: #Eosinphils 0.2 thou/uL (0.0-0.7); #Neutrophils 6.6 thou/uL (1.40-6.50); %Basophils 0.2 % (0.0-1.0); %Eosinophils 2.8 % (0.0-10.0); %Lymphocytes 9.6 % (21.0-51.0); %Monocytes 11.5 % (0.0-10.0); %Neutrophils 75.6 % (42.0-75.0); Hematocrit 32.3 % (36.0-47.0); Hemoglobin 10.8 g/dL (12.0-16.0); Mean Corpuscular HGB CONC 33.4 g/dL (32.0-36.0); Mean Corpuscular Volume 92.8 fl (78.0-98.0); Mean Platelet Volume 10.3 fL (7.4-10.4); Platelet Count 305 10x3/uL (130-400); RBC Distribution Width 13.2 % (11.5-14.5); Red Blood Cell (RBC) Count 3.48 mill/uL (4.20-5.40); White Blood Cell (WBC) Count 8.7 10x3/uL (4.8-10.8)
[2023-04-20 05:34] LABS: Anion Gap 11 mmol/L (10-20); BUN (Urea Nitrogen) 13 mg/dL (9.8-20.1); Calc. Creatinine Clearance 55 mL/min (70-130); Calcium 8.7 mg/dL (7.8-10.44); Carbon Dioxide 25 mmol/L (23-31); Chloride 98 mmol/L (98-107); Estimated GFR 89; Glucose 101 mg/dL (83-110); Potassium 3.4 mmol/L (3.5-5.1); Sodium 131 mmol/L (136-145)
[2023-04-20] MEDS: Levothyroxine Sodium 50 MCG TAB PO SCH (06:27)
[2023-04-20] MEDS: Acetaminophen 325 MG TAB PO PRN ×2 (06:28→21:32)
[2023-04-20] MEDS ORDERED: Potassium Chloride 20 MEQ TAB PO SCH (08:15)
[2023-04-20] MEDS ORDERED: Calcium Carbonate 600 MG TAB PO SCH (09:00)
[2023-04-20] MEDS: Docusate 100 MG CAP PO SCH ×2 (10:41→21:32)
[2023-04-20] MEDS: Pentoxifylline 400 MG ER.TAB PO SCH ×2 (10:41→16:55)
[2023-04-20] MEDS ORDERED: Magnesium 2 GM/50 ML(in water) 2 GM in Premix Bag 1 BAG IVPB SCH (16:15)
[2023-04-20] MEDS: Calcium Carbonate 600 MG + Vit D TAB PO SCH (16:55)
[2023-04-20] MEDS: predniSONE 1 MG TAB PO SCH (21:32)
[2023-04-20] MEDS: Cyanocobalamin (Vitamin B-12) 1,000 MCG TAB PO SCH (21:32)
[2023-04-20] MEDS: Atorvastatin Calcium 20 MG TAB PO SCH (21:32)
[2023-04-20] MEDS: Multivit, Therapeutic 1 TAB PO SCH (21:32)
[2023-04-20] MEDS: Folic Acid 1 MG TAB PO SCH (21:32)
[2023-04-21 04:25] LABS: #Monocytes 1.1 thou/uL (0.11-0.59); #Neutrophils 10.8 thou/uL (1.40-6.50); %Basophils 0.1 % (0.0-1.0); %Lymphocytes 4.1 % (21.0-51.0); %Monocytes 9.1 % (0.0-10.0); %Neutrophils 86.3 % (42.0-75.0); Hematocrit 30.7 % (36.0-47.0); Hemoglobin 10.4 g/dL (12.0-16.0); Mean Corpuscular HGB CONC 33.9 g/dL (32.0-36.0); Mean Corpuscular Hemoglobin 31.6 pg (27.0-31.0); Mean Corpuscular Volume 93.3 fl (78.0-98.0); Mean Platelet Volume 9.8 fL (7.4-10.4); Platelet Count 264 10x3/uL (130-400); RBC Distribution Width 13.2 % (11.5-14.5); Red Blood Cell (RBC) Count 3.29 mill/uL (4.20-5.40); White Blood Cell (WBC) Count 12.5 10x3/uL (4.8-10.8)
[2023-04-21 04:47] LABS: Anion Gap 11 mmol/L (10-20); BUN (Urea Nitrogen) 13 mg/dL (9.8-20.1); Calc. Creatinine Clearance 56 mL/min (70-130); Carbon Dioxide 24 mmol/L (23-31); Chloride 96 mmol/L (98-107); Estimated GFR 89; Glucose 125 mg/dL (83-110); Potassium 3.9 mmol/L (3.5-5.1); Sodium 127 mmol/L (136-145)
[2023-04-21] MEDS: Levothyroxine Sodium 50 MCG TAB PO SCH (06:07)
[2023-04-21] MEDS: Calcium Carbonate 600 MG + Vit D TAB PO SCH ×2 (10:08→19:38)
[2023-04-21] MEDS: Acetaminophen 325 MG TAB PO PRN ×2 (10:09→20:56)
[2023-04-21] MEDS: Docusate 100 MG CAP PO SCH ×2 (10:09→20:57)
[2023-04-21] MEDS: Pentoxifylline 400 MG ER.TAB PO SCH ×2 (10:09→19:39)
[2023-04-21] MEDS ORDERED: dilTIAZem 25 MG/5 ML VIAL ONE (14:07)
[2023-04-21] MEDS ORDERED: dilTIAZem 125 MG in Sodium Chloride 0.9% 100 ML IVPB SCH (14:15)
[2023-04-21] MEDS ORDERED: dilTIAZem 25 MG/5 ML VIAL SLOW IVP SCH (14:15)
[2023-04-21] MEDS: Cyanocobalamin (Vitamin B-12) 1,000 MCG TAB PO SCH (20:57)
[2023-04-21] MEDS: Atorvastatin Calcium 20 MG TAB PO SCH (20:57)
[2023-04-21] MEDS: predniSONE 1 MG TAB PO SCH (20:57)
[2023-04-21] MEDS: Metoprolol Tartrate 25 MG TAB PO SCH (20:57)
[2023-04-21] MEDS: Folic Acid 1 MG TAB PO SCH (20:57)
[2023-04-21] MEDS: Multivit, Therapeutic 1 TAB PO SCH (20:57)
[2023-04-22] MEDS: Acetaminophen 325 MG TAB PO PRN ×2 (04:35→21:09)
[2023-04-22] MEDS: Levothyroxine Sodium 50 MCG TAB PO SCH (04:36)
[2023-04-22] MEDS ORDERED: Sodium Chloride 0.9% 500 ML IV SCH (06:15)
[2023-04-22] MEDS ORDERED: Vancomycin 1 GM in Premix Bag 1 BAG IVPB SCH (06:15)
[2023-04-22 06:18] LABS: #Monocytes 1.2 thou/uL (0.11-0.59); %Basophils 0.2 % (0.0-1.0); %Lymphocytes 3.9 % (21.0-51.0); %Monocytes 10.2 % (0.0-10.0); %Neutrophils 85.2 % (42.0-75.0); Hemoglobin 11.2 g/dL (12.0-16.0); Mean Corpuscular Hemoglobin 32.1 pg (27.0-31.0); Mean Corpuscular Volume 91.7 fl (78.0-98.0); Mean Platelet Volume 9.4 fL (7.4-10.4); Platelet Count 240 10x3/uL (130-400); RBC Distribution Width 13.1 % (11.5-14.5); Red Blood Cell (RBC) Count 3.49 mill/uL (4.20-5.40); White Blood Cell (WBC) Count 11.7 10x3/uL (4.8-10.8)
[2023-04-22] MEDS ORDERED: Digoxin 0.5 MG/2 ML AMP SLOW IVP SCH (06:30)
[2023-04-22 06:39] LABS: Lactic Acid 0.8 mmol/L (0.5-2.2)
[2023-04-22 06:42] LABS: Anion Gap 13 mmol/L (10-20); BUN (Urea Nitrogen) 12 mg/dL (9.8-20.1); Calc. Creatinine Clearance 57 mL/min (70-130); Calcium 8.5 mg/dL (7.8-10.44); Carbon Dioxide 21 mmol/L (23-31); Chloride 94 mmol/L (98-107); Estimated GFR 89; Glucose 127 mg/dL (83-110); Magnesium 1.8 mg/dL (1.6-2.6); Potassium 3.8 mmol/L (3.5-5.1); Sodium 124 mmol/L (136-145)
[2023-04-22 09:55] LABS: Bilirubin Negative (Negative); CAUTI Indications for Culture Fever or rigors; Clarity Turbid (Clear); Glucose, Urine (Dipstick) Normal (Negative); Ketone, Urine 10 mg/dL (Negative); Leukocyte 500 Leu/uL (Negative); Nitrite Negative (Negative); Protein, Urine (Dipstick) 70 mg/dL (Neg-Trace); Specific Gravity, Urine 1.027 (1.002-1.036); Squamous Epithelial None Seen HPF (0-3); Urobilinogen Normal mg/dL (Less than 2); WBC/HPF Greater than 50 HPF (0-3); pH, Urine 6.5 (5.0-9.0)
[2023-04-22 10:15] LABS: Bacteria/HPF 1+ HPF (None Seen); Blood, Urine 2+ (Negative)
[2023-04-22 10:19] LABS: Urine Culture Reflex Yes Yes
[2023-04-22] MEDS: Pentoxifylline 400 MG ER.TAB PO SCH ×2 (11:28→17:14)
[2023-04-22] MEDS: Metoprolol Tartrate 25 MG TAB PO SCH ×2 (11:29→21:10)
[2023-04-22] MEDS: Calcium Carbonate 600 MG + Vit D TAB PO SCH ×2 (11:29→17:14)
[2023-04-22] MEDS: Apixaban 2.5 MG TAB PO SCH ×2 (11:29→21:09)
[2023-04-22] MEDS: Docusate 100 MG CAP PO SCH ×2 (11:30→21:10)
[2023-04-22] MEDS ORDERED: Metoprolol Tartrate 5 MG/5 ML VIAL IVP SCH ×2 (11:58→12:45)
[2023-04-22] MEDS: Vancomycin HCl 750 MG in Sodium Chloride 0.9% 250 ML 250 ML IVPB SCH (18:26)
[2023-04-22] MEDS: Atorvastatin Calcium 20 MG TAB PO SCH (21:10)
[2023-04-22] MEDS: Cyanocobalamin (Vitamin B-12) 1,000 MCG TAB PO SCH (21:10)
[2023-04-22] MEDS: Folic Acid 1 MG TAB PO SCH (21:10)
[2023-04-22] MEDS: predniSONE 1 MG TAB PO SCH (21:10)
[2023-04-22] MEDS: Multivit, Therapeutic 1 TAB PO SCH (21:10)
[2023-04-23] MEDS: Vancomycin HCl 750 MG in Sodium Chloride 0.9% 250 ML 250 ML IVPB SCH ×2 (05:45→19:44)
[2023-04-23] MEDS: Levothyroxine Sodium 50 MCG TAB PO SCH (05:45)
[2023-04-23 05:57] LABS: Anion Gap 11 mmol/L (10-20); BUN (Urea Nitrogen) 14 mg/dL (9.8-20.1); Calc. Creatinine Clearance 60 mL/min (70-130); Calcium 8.5 mg/dL (7.8-10.44); Carbon Dioxide 21 mmol/L (23-31); Chloride 95 mmol/L (98-107); Estimated GFR 90; Glucose 101 mg/dL (83-110); Magnesium 1.9 mg/dL (1.6-2.6); Potassium 3.3 mmol/L (3.5-5.1); Sodium 124 mmol/L (136-145)
[2023-04-23] MEDS: Metoprolol Tartrate 50 MG TAB PO SCH ×2 (11:12→21:06)
[2023-04-23] MEDS: Pentoxifylline 400 MG ER.TAB PO SCH ×2 (11:12→19:09)
[2023-04-23] MEDS: Apixaban 2.5 MG TAB PO SCH ×2 (11:12→21:04)
[2023-04-23] MEDS: Docusate 100 MG CAP PO SCH ×2 (11:13→21:06)
[2023-04-23] MEDS: Calcium Carbonate 600 MG + Vit D TAB PO SCH ×2 (11:13→19:09)
[2023-04-23 17:38] LABS: Vancomycin, Trough 15.2 ug/mL
[2023-04-23] MEDS: Atorvastatin Calcium 20 MG TAB PO SCH (21:04)
[2023-04-23] MEDS: Acetaminophen 325 MG TAB PO PRN (21:05)
[2023-04-23] MEDS: Cyanocobalamin (Vitamin B-12) 1,000 MCG TAB PO SCH (21:05)
[2023-04-23] MEDS: Multivit, Therapeutic 1 TAB PO SCH (21:05)
[2023-04-23] MEDS: predniSONE 1 MG TAB PO SCH (21:05)
[2023-04-23] MEDS: Folic Acid 1 MG TAB PO SCH (21:06)
[2023-04-24 04:57] LABS: Anion Gap 10 mmol/L (10-20); BUN (Urea Nitrogen) 14 mg/dL (9.8-20.1); Calc. Creatinine Clearance 58 mL/min (70-130); Calcium 8.6 mg/dL (7.8-10.44); Carbon Dioxide 24 mmol/L (23-31); Chloride 97 mmol/L (98-107); Estimated GFR 90; Glucose 108 mg/dL (83-110); Magnesium 1.8 mg/dL (1.6-2.6); Potassium 3.1 mmol/L (3.5-5.1); Sodium 128 mmol/L (136-145)
[2023-04-24] MEDS: Vancomycin HCl 750 MG in Sodium Chloride 0.9% 250 ML 250 ML IVPB SCH (06:33)
[2023-04-24] MEDS: Levothyroxine Sodium 50 MCG TAB PO SCH (06:33)
[2023-04-24] MEDS: Metoprolol Tartrate 50 MG TAB PO SCH ×2 (08:51→20:46)
[2023-04-24] MEDS: Apixaban 2.5 MG TAB PO SCH ×2 (08:51→20:46)
[2023-04-24] MEDS: Calcium Carbonate 600 MG + Vit D TAB PO SCH ×2 (08:51→17:23)
[2023-04-24] MEDS: Pentoxifylline 400 MG ER.TAB PO SCH ×2 (08:51→17:23)
[2023-04-24] MEDS: Docusate 100 MG CAP PO SCH ×2 (08:51→20:46)
[2023-04-24] MEDS ORDERED: Potassium Chloride 20 MEQ TAB PO SCH (09:15)
[2023-04-24] MEDS: Ampicillin 2 GM in Sodium Chloride 0.9% 100 ML IVPB SCH ×2 (17:23→20:47)
[2023-04-24] MEDS: Cyanocobalamin (Vitamin B-12) 1,000 MCG TAB PO SCH (20:46)
[2023-04-24] MEDS: Atorvastatin Calcium 20 MG TAB PO SCH (20:46)
[2023-04-24] MEDS: Folic Acid 1 MG TAB PO SCH (20:46)
[2023-04-24] MEDS: predniSONE 1 MG TAB PO SCH (20:46)
[2023-04-24] MEDS: Acetaminophen 325 MG TAB PO PRN (20:47)
[2023-04-24] MEDS: Multivit, Therapeutic 1 TAB PO SCH (20:47)
[2023-04-25] MEDS: Ampicillin 2 GM in Sodium Chloride 0.9% 100 ML IVPB SCH ×3 (01:50→09:10)
[2023-04-25] MEDS ORDERED: Potassium Chloride 20 MEQ TAB PO SCH (03:30)
[2023-04-25] MEDS ORDERED: Magnesium 2 GM/50 ML(in water) 2 GM in Premix Bag 1 BAG IVPB SCH (03:30)
[2023-04-25] MEDS ORDERED: Electrolyte Replacement Protocol 1 EACH FS SCH (03:30)
[2023-04-25 05:06] LABS: #Eosinphils 0.2 thou/uL (0.0-0.7); #Monocytes 1.4 thou/uL (0.11-0.59); #Neutrophils 5.9 thou/uL (1.40-6.50); %Basophils 0.4 % (0.0-1.0); %Eosinophils 2.5 % (0.0-10.0); %Lymphocytes 11.5 % (21.0-51.0); %Monocytes 16.3 % (0.0-10.0); %Neutrophils 68.7 % (42.0-75.0); Hematocrit 30.4 % (36.0-47.0); Hemoglobin 10.3 g/dL (12.0-16.0); Mean Corpuscular HGB CONC 33.9 g/dL (32.0-36.0); Mean Corpuscular Hemoglobin 31.6 pg (27.0-31.0); Mean Corpuscular Volume 93.3 fl (78.0-98.0); Mean Platelet Volume 10.6 fL (7.4-10.4); Platelet Count 256 10x3/uL (130-400); RBC Distribution Width 13.2 % (11.5-14.5); Red Blood Cell (RBC) Count 3.26 mill/uL (4.20-5.40); White Blood Cell (WBC) Count 8.5 10x3/uL (4.8-10.8)
[2023-04-25 05:25] LABS: Magnesium 1.8 mg/dL (1.6-2.6)
[2023-04-25] MEDS: Levothyroxine Sodium 50 MCG TAB PO SCH (05:42)
[2023-04-25 05:49] LABS: Anion Gap 11 mmol/L (10-20); BUN (Urea Nitrogen) 10 mg/dL (9.8-20.1); Calc. Creatinine Clearance 60 mL/min (70-130); Calcium 8.8 mg/dL (7.8-10.44); Carbon Dioxide 24 mmol/L (23-31); Chloride 100 mmol/L (98-107); Estimated GFR 90; Glucose 92 mg/dL (83-110); Potassium 3.6 mmol/L (3.5-5.1); Sodium 131 mmol/L (136-145)
[2023-04-25] MEDS: Docusate 100 MG CAP PO SCH (09:10)
[2023-04-25] MEDS: Calcium Carbonate 600 MG + Vit D TAB PO SCH (09:10)
[2023-04-25] MEDS: Metoprolol Tartrate 50 MG TAB PO SCH (09:10)
[2023-04-25] MEDS: Apixaban 2.5 MG TAB PO SCH (09:10)
[2023-04-25] MEDS: Pentoxifylline 400 MG ER.TAB PO SCH (09:10)
[2023-04-25 12:39] VITALS: TEMP 97.7
[2023-04-25 13:42] VITALS: BP 148/63
== END 2023-04-25 14:00 | DRG 308 ==
LOC: ERS 10:52 → INTOOBSV 17:36 → 2NO 17:36 → OBSVTOIN 04-19 18:00
PROVIDERS: ADMIT Internal Medicine; ATTEND Internal Medicine
DX: I48.0 Paroxysmal atrial fibrillation (principal); A41.50 Gram-negative sepsis, unspecified; E87.1 Hypo-osmolality and hyponatremia; E78.5 Hyperlipidemia, unspecified; E03.9 Hypothyroidism, unspecified; G62.9 Polyneuropathy, unspecified; N18.2 Chronic kidney disease, stage 2 (mild); E78.00 Pure hypercholesterolemia, unspecified; M81.0 Age-related osteoporosis without current pathological fracture; E83.42 Hypomagnesemia; E87.6 Hypokalemia; I48.92 Unspecified atrial flutter; I08.3 Combined rheumatic disorders of mitral, aortic and tricuspid valves; I12.9 Hypertensive chronic kidney disease with stage 1 through stage 4 chronic kidney disease, or unspecified chronic kidney disease; I95.9 Hypotension, unspecified; Z88.8 Allergy status to other drugs, medicaments and biological substances; Z88.2 Allergy status to sulfonamides; Z88.5 Allergy status to narcotic agent; Z79.899 Other long term (current) drug therapy; Z79.51 Long term (current) use of inhaled steroids; Z90.49 Acquired absence of other specified parts of digestive tract; Z98.890 Other specified postprocedural states; Z11.52 Encounter for screening for COVID-19; S82.832D Other fracture of upper and lower end of left fibula, subsequent encounter for closed fracture with routine healing
CPT/HCPCS: 36415; 51701; 71045; 71275; 80048; 80053; 80202; 81001; 83605; 83690; 83735; 84443; 84484; 85025; 85379; 87040; 87077; 87086; 87149; 87186; 93005; 93010; 93306; 93970; 96374; 96375; G0378; J0290; J1160; J1200; J1650; J2920; J3370; J3370-JW; J3475; J3490; J7030; J7050; J7512; Q9967; S0028

== ENCOUNTER 2023-05-03 12:30 | Inpatient (IN) | payer MEDICARE ==
[2023-05-03 18:36] VITALS: BMI 21.4
[2023-05-03] MEDS ORDERED: Ondansetron ODT 4 MG TAB PO PRN (19:48)
[2023-05-03 20:07] LABS: #Basophils 0.1 thou/uL (0.0-0.2); #Eosinphils 0.4 thou/uL (0.0-0.7); #Monocytes 0.9 thou/uL (0.11-0.59); #Neutrophils 4.1 thou/uL (1.40-6.50); %Basophils 0.7 % (0.0-1.0); %Eosinophils 5.3 % (0.0-10.0); %Lymphocytes 20.2 % (21.0-51.0); %Monocytes 12.9 % (0.0-10.0); %Neutrophils 60.5 % (42.0-75.0); Hematocrit 31.5 % (36.0-47.0); Hemoglobin 10.7 g/dL (12.0-16.0); Mean Corpuscular Hemoglobin 31.6 pg (27.0-31.0); Mean Corpuscular Volume 92.9 fl (78.0-98.0); Mean Platelet Volume 9.4 fL (7.4-10.4); Platelet Count 311 10x3/uL (130-400); RBC Distribution Width 12.8 % (11.5-14.5); Red Blood Cell (RBC) Count 3.39 mill/uL (4.20-5.40); White Blood Cell (WBC) Count 6.8 10x3/uL (4.8-10.8)
[2023-05-03 20:27] LABS: Anion Gap 11 mmol/L (10-20); BUN (Urea Nitrogen) 9 mg/dL (9.8-20.1); Calc. Creatinine Clearance 67 mL/min (70-130); Calcium 8.6 mg/dL (7.8-10.44); Carbon Dioxide 22 mmol/L (23-31); Chloride 93 mmol/L (98-107); Estimated GFR 91; Glucose 99 mg/dL (83-110); Potassium 4.1 mmol/L (3.5-5.1); Sodium 122 mmol/L (136-145)
[2023-05-03] MEDS: Apixaban 2.5 MG TAB PO SCH (20:46)
[2023-05-03] MEDS: Montelukast Sodium 10 mg Tablet PO SCH (20:46)
[2023-05-03] MEDS: Atorvastatin Calcium 20 MG TAB PO SCH (20:46)
[2023-05-03] MEDS: predniSONE 1 MG TAB PO SCH (20:46)
[2023-05-03] MEDS ORDERED: Metoprolol Tartrate 50 MG TAB PO SCH (21:00)
[2023-05-03] MEDS ORDERED: Sodium Chloride 0.9% 500 ML IV SCH ×2 (22:30→22:45)
[2023-05-04 05:11] LABS: #Eosinphils 0.3 thou/uL (0.0-0.7); #Monocytes 0.8 thou/uL (0.11-0.59); #Neutrophils 4.4 thou/uL (1.40-6.50); %Basophils 0.6 % (0.0-1.0); %Eosinophils 4.6 % (0.0-10.0); %Lymphocytes 15.7 % (21.0-51.0); %Monocytes 11.6 % (0.0-10.0); %Neutrophils 67.2 % (42.0-75.0); Hematocrit 30.4 % (36.0-47.0); Hemoglobin 10.4 g/dL (12.0-16.0); Mean Corpuscular HGB CONC 34.2 g/dL (32.0-36.0); Mean Corpuscular Hemoglobin 31.7 pg (27.0-31.0); Mean Corpuscular Volume 92.7 fl (78.0-98.0); Mean Platelet Volume 10.3 fL (7.4-10.4); Platelet Count 306 10x3/uL (130-400); RBC Distribution Width 12.8 % (11.5-14.5); Red Blood Cell (RBC) Count 3.28 mill/uL (4.20-5.40); White Blood Cell (WBC) Count 6.6 10x3/uL (4.8-10.8)
[2023-05-04 05:35] LABS: ALT (SGPT) 10 U/L (8-55); AST (SGOT) 19 U/L (5-34); Albumin 3.3 g/dL (3.4-4.8); Alkaline Phosphatase 93 U/L (40-110); Anion Gap 11 mmol/L (10-20); BUN (Urea Nitrogen) 9 mg/dL (9.8-20.1); Bilirubin, Total 0.3 mg/dL (0.2-1.2); Calc. Creatinine Clearance 66 mL/min (70-130); Calcium 8.5 mg/dL (7.8-10.44); Carbon Dioxide 22 mmol/L (23-31); Chloride 95 mmol/L (98-107); Estimated GFR 91; Globulin 2.5 g/dL (2.4-3.5); Glucose 87 mg/dL (83-110); Potassium 3.9 mmol/L (3.5-5.1); Protein, Total 5.8 g/dL (5.8-8.1); Sodium 124 mmol/L (136-145)
[2023-05-04] MEDS: Levothyroxine Sodium 50 MCG TAB PO SCH (05:53)
[2023-05-04] MEDS: Acetaminophen 325 MG TAB PO PRN ×2 (09:59→20:15)
[2023-05-04] MEDS: Calcium Carbonate 600 MG TAB PO SCH (10:00)
[2023-05-04] MEDS: Apixaban 2.5 MG TAB PO SCH ×2 (10:00→20:15)
[2023-05-04] MEDS: Zinc Sulfate 220 MG CAP PO SCH (10:00)
[2023-05-04] MEDS: Saccharomyces boulardii 250 MG CAP PO SCH (10:00)
[2023-05-04] MEDS: Vitamin E 400 UNITS CAP PO SCH (10:00)
[2023-05-04] MEDS ORDERED: Linezolid 600 MG TAB PO SCH (11:45)
[2023-05-04] MEDS: Sodium Chloride 0.9% 1,000 ML IV SCH (12:27)
[2023-05-04] MEDS ORDERED: Polyethylene Glycol 3350 17 GM Packet PO PRN (12:48)
[2023-05-04] MEDS: Atorvastatin Calcium 20 MG TAB PO SCH (20:15)
[2023-05-04] MEDS: Montelukast Sodium 10 mg Tablet PO SCH (20:15)
[2023-05-04] MEDS: Famotidine 20 MG TAB PO SCH (20:15)
[2023-05-04] MEDS: predniSONE 1 MG TAB PO SCH (20:15)
[2023-05-04] MEDS: Linezolid 600 MG TAB PO SCH (20:15)
[2023-05-04] MEDS: Metoprolol Tartrate 25 MG TAB PO SCH (21:38)
[2023-05-05 04:32] LABS: #Eosinphils 0.2 thou/uL (0.0-0.7); #Neutrophils 6.6 thou/uL (1.40-6.50); %Basophils 0.3 % (0.0-1.0); %Eosinophils 2.5 % (0.0-10.0); %Lymphocytes 10.6 % (21.0-51.0); %Monocytes 11.4 % (0.0-10.0); Hematocrit 30.5 % (36.0-47.0); Hemoglobin 10.3 g/dL (12.0-16.0); Mean Corpuscular HGB CONC 33.8 g/dL (32.0-36.0); Mean Corpuscular Hemoglobin 30.9 pg (27.0-31.0); Mean Corpuscular Volume 91.6 fl (78.0-98.0); Mean Platelet Volume 9.9 fL (7.4-10.4); Platelet Count 275 10x3/uL (130-400); RBC Distribution Width 13.1 % (11.5-14.5); Red Blood Cell (RBC) Count 3.33 mill/uL (4.20-5.40); White Blood Cell (WBC) Count 8.8 10x3/uL (4.8-10.8)
[2023-05-05 04:59] LABS: Anion Gap 13 mmol/L (10-20); BUN (Urea Nitrogen) 8 mg/dL (9.8-20.1); Calc. Creatinine Clearance 63 mL/min (70-130); Calcium 8.3 mg/dL (7.8-10.44); Carbon Dioxide 21 mmol/L (23-31); Chloride 98 mmol/L (98-107); Estimated GFR 90; Glucose 107 mg/dL (83-110); Sodium 128 mmol/L (136-145)
[2023-05-05] MEDS: Levothyroxine Sodium 50 MCG TAB PO SCH (05:14)
[2023-05-05] MEDS: Sodium Chloride 0.9% 1,000 ML IV SCH (06:18)
[2023-05-05] MEDS: Vitamin E 400 UNITS CAP PO SCH (09:54)
[2023-05-05] MEDS: Linezolid 600 MG TAB PO SCH ×2 (09:54→20:22)
[2023-05-05] MEDS: Famotidine 20 MG TAB PO SCH ×2 (09:54→20:22)
[2023-05-05] MEDS: Saccharomyces boulardii 250 MG CAP PO SCH (09:54)
[2023-05-05] MEDS: Metoprolol Tartrate 25 MG TAB PO SCH ×2 (09:54→20:22)
[2023-05-05] MEDS: Calcium Carbonate 600 MG TAB PO SCH (09:54)
[2023-05-05] MEDS: Apixaban 2.5 MG TAB PO SCH ×2 (09:55→20:22)
[2023-05-05] MEDS: Zinc Sulfate 220 MG CAP PO SCH (09:55)
[2023-05-05] MEDS: Polyethylene Glycol 3350 17 GM Packet PO SCH (09:55)
[2023-05-05] MEDS: Montelukast Sodium 10 mg Tablet PO SCH (20:22)
[2023-05-05] MEDS: predniSONE 1 MG TAB PO SCH (20:22)
[2023-05-05] MEDS: Atorvastatin Calcium 20 MG TAB PO SCH (20:22)
[2023-05-06 04:55] LABS: #Basophils 0.1 thou/uL (0.0-0.2); #Eosinphils 0.3 thou/uL (0.0-0.7); #Monocytes 1.3 thou/uL (0.11-0.59); #Neutrophils 7.3 thou/uL (1.40-6.50); %Basophils 0.5 % (0.0-1.0); %Eosinophils 3.3 % (0.0-10.0); %Lymphocytes 11.4 % (21.0-51.0); %Monocytes 12.4 % (0.0-10.0); Hematocrit 30.2 % (36.0-47.0); Hemoglobin 10.4 g/dL (12.0-16.0); Mean Corpuscular HGB CONC 34.4 g/dL (32.0-36.0); Mean Corpuscular Hemoglobin 31.2 pg (27.0-31.0); Mean Corpuscular Volume 90.7 fl (78.0-98.0); Mean Platelet Volume 10.1 fL (7.4-10.4); Platelet Count 259 10x3/uL (130-400); RBC Distribution Width 12.9 % (11.5-14.5); Red Blood Cell (RBC) Count 3.33 mill/uL (4.20-5.40); White Blood Cell (WBC) Count 10.1 10x3/uL (4.8-10.8)
[2023-05-06] MEDS: Levothyroxine Sodium 50 MCG TAB PO SCH (05:09)
[2023-05-06 05:21] LABS: Anion Gap 13 mmol/L (10-20); BUN (Urea Nitrogen) 8 mg/dL (9.8-20.1); Calc. Creatinine Clearance 67 mL/min (70-130); Calcium 8.4 mg/dL (7.8-10.44); Carbon Dioxide 21 mmol/L (23-31); Chloride 95 mmol/L (98-107); Estimated GFR 91; Glucose 97 mg/dL (83-110); Potassium 3.8 mmol/L (3.5-5.1); Sodium 125 mmol/L (136-145)
[2023-05-06] MEDS: Saccharomyces boulardii 250 MG CAP PO SCH (10:18)
[2023-05-06] MEDS: Vitamin E 400 UNITS CAP PO SCH (10:18)
[2023-05-06] MEDS: Apixaban 2.5 MG TAB PO SCH ×2 (10:18→21:41)
[2023-05-06] MEDS: Metoprolol Tartrate 25 MG TAB PO SCH ×2 (10:18→21:41)
[2023-05-06] MEDS: Linezolid 600 MG TAB PO SCH ×2 (10:18→21:41)
[2023-05-06] MEDS: Polyethylene Glycol 3350 17 GM Packet PO SCH (10:18)
[2023-05-06] MEDS: Zinc Sulfate 220 MG CAP PO SCH (10:18)
[2023-05-06] MEDS: Calcium Carbonate 600 MG TAB PO SCH (10:18)
[2023-05-06] MEDS: Famotidine 20 MG TAB PO SCH ×2 (10:18→21:41)
[2023-05-06] MEDS: Montelukast Sodium 10 mg Tablet PO SCH (21:41)
[2023-05-06] MEDS: Atorvastatin Calcium 20 MG TAB PO SCH (21:41)
[2023-05-06] MEDS: predniSONE 1 MG TAB PO SCH (21:41)
[2023-05-07 04:28] LABS: #Eosinphils 0.3 thou/uL (0.0-0.7); #Monocytes 1.2 thou/uL (0.11-0.59); #Neutrophils 5.4 thou/uL (1.40-6.50); %Basophils 0.5 % (0.0-1.0); %Eosinophils 4.2 % (0.0-10.0); %Lymphocytes 12.6 % (21.0-51.0); %Monocytes 14.5 % (0.0-10.0); %Neutrophils 67.9 % (42.0-75.0); Hematocrit 31.5 % (36.0-47.0); Hemoglobin 10.8 g/dL (12.0-16.0); Mean Corpuscular HGB CONC 34.3 g/dL (32.0-36.0); Mean Corpuscular Volume 90.5 fl (78.0-98.0); Mean Platelet Volume 9.8 fL (7.4-10.4); Platelet Count 242 10x3/uL (130-400); Red Blood Cell (RBC) Count 3.48 mill/uL (4.20-5.40); White Blood Cell (WBC) Count 7.9 10x3/uL (4.8-10.8)
[2023-05-07 04:53] LABS: Anion Gap 10 mmol/L (10-20); BUN (Urea Nitrogen) 9 mg/dL (9.8-20.1); Calc. Creatinine Clearance 64 mL/min (70-130); Calcium 8.9 mg/dL (7.8-10.44); Carbon Dioxide 25 mmol/L (23-31); Chloride 92 mmol/L (98-107); Estimated GFR 90; Glucose 98 mg/dL (83-110); Potassium 3.9 mmol/L (3.5-5.1); Sodium 123 mmol/L (136-145)
[2023-05-07] MEDS: Levothyroxine Sodium 50 MCG TAB PO SCH (05:56)
[2023-05-07] MEDS: Vitamin E 400 UNITS CAP PO SCH (08:38)
[2023-05-07] MEDS: Zinc Sulfate 220 MG CAP PO SCH (08:39)
[2023-05-07] MEDS: Famotidine 20 MG TAB PO SCH ×2 (08:40→21:18)
[2023-05-07] MEDS: Amlodipine 5 MG TAB PO SCH (08:40)
[2023-05-07] MEDS: Calcium Carbonate 600 MG TAB PO SCH (08:40)
[2023-05-07] MEDS: Apixaban 2.5 MG TAB PO SCH ×2 (08:41→21:19)
[2023-05-07] MEDS: Saccharomyces boulardii 250 MG CAP PO SCH (08:41)
[2023-05-07] MEDS: Metoprolol Tartrate 25 MG TAB PO SCH ×2 (08:41→21:18)
[2023-05-07] MEDS ORDERED: Sodium Chloride 0.9% 1,000 ML IV SCH (08:45)
[2023-05-07] MEDS: Polyethylene Glycol 3350 17 GM Packet PO SCH (08:48)
[2023-05-07] MEDS: Sodium Chloride 0.9% 1,000 ML IV SCH ×2 (10:01→21:19)
[2023-05-07 18:00] LABS: Sodium 122 mmol/L (136-145)
[2023-05-07] MEDS: Montelukast Sodium 10 mg Tablet PO SCH (21:19)
[2023-05-07] MEDS: Atorvastatin Calcium 20 MG TAB PO SCH (21:19)
[2023-05-07] MEDS: predniSONE 1 MG TAB PO SCH (21:19)
[2023-05-08 04:37] LABS: #Eosinphils 0.2 thou/uL (0.0-0.7); #Neutrophils 4.6 thou/uL (1.40-6.50); %Basophils 0.4 % (0.0-1.0); %Eosinophils 3.2 % (0.0-10.0); %Lymphocytes 15.3 % (21.0-51.0); Hematocrit 33.8 % (36.0-47.0); Hemoglobin 11.5 g/dL (12.0-16.0); Mean Corpuscular Hemoglobin 31.3 pg (27.0-31.0); Mean Corpuscular Volume 92.1 fl (78.0-98.0); Mean Platelet Volume 9.9 fL (7.4-10.4); Platelet Count 234 10x3/uL (130-400); RBC Distribution Width 12.9 % (11.5-14.5); Red Blood Cell (RBC) Count 3.67 mill/uL (4.20-5.40); White Blood Cell (WBC) Count 6.8 10x3/uL (4.8-10.8)
[2023-05-08 05:04] LABS: Anion Gap 14 mmol/L (10-20); BUN (Urea Nitrogen) 13 mg/dL (9.8-20.1); Calc. Creatinine Clearance 64 mL/min (70-130); Carbon Dioxide 24 mmol/L (23-31); Chloride 96 mmol/L (98-107); Estimated GFR 90; Glucose 108 mg/dL (83-110); Potassium 4.6 mmol/L (3.5-5.1); Sodium 129 mmol/L (136-145)
[2023-05-08] MEDS: Levothyroxine Sodium 50 MCG TAB PO SCH (05:39)
[2023-05-08] MEDS: Polyethylene Glycol 3350 17 GM Packet PO SCH (08:33)
[2023-05-08] MEDS: Zinc Sulfate 220 MG CAP PO SCH (08:34)
[2023-05-08] MEDS: Saccharomyces boulardii 250 MG CAP PO SCH (08:34)
[2023-05-08] MEDS: Apixaban 2.5 MG TAB PO SCH ×2 (08:34→21:18)
[2023-05-08] MEDS: Famotidine 20 MG TAB PO SCH ×2 (08:34→21:18)
[2023-05-08] MEDS: Vitamin E 400 UNITS CAP PO SCH (08:34)
[2023-05-08] MEDS: Calcium Carbonate 600 MG TAB PO SCH (08:34)
[2023-05-08] MEDS: Amlodipine 5 MG TAB PO SCH (08:34)
[2023-05-08] MEDS: Metoprolol Tartrate 25 MG TAB PO SCH ×2 (08:35→21:18)
[2023-05-08] MEDS: predniSONE 1 MG TAB PO SCH (21:18)
[2023-05-08] MEDS: Atorvastatin Calcium 20 MG TAB PO SCH (21:18)
[2023-05-08] MEDS: Montelukast Sodium 10 mg Tablet PO SCH (21:18)
[2023-05-09 04:55] LABS: #Eosinphils 0.2 thou/uL (0.0-0.7); #Neutrophils 4.6 thou/uL (1.40-6.50); %Basophils 0.5 % (0.0-1.0); %Eosinophils 3.2 % (0.0-10.0); %Lymphocytes 12.2 % (21.0-51.0); %Monocytes 14.3 % (0.0-10.0); %Neutrophils 69.5 % (42.0-75.0); Mean Corpuscular HGB CONC 34.5 g/dL (32.0-36.0); Mean Corpuscular Hemoglobin 31.3 pg (27.0-31.0); Mean Corpuscular Volume 90.9 fl (78.0-98.0); Mean Platelet Volume 10.1 fL (7.4-10.4); Platelet Count 195 10x3/uL (130-400); Red Blood Cell (RBC) Count 3.19 mill/uL (4.20-5.40); White Blood Cell (WBC) Count 6.6 10x3/uL (4.8-10.8)
[2023-05-09 05:17] LABS: Anion Gap 12 mmol/L (10-20); BUN (Urea Nitrogen) 12 mg/dL (9.8-20.1); Calc. Creatinine Clearance 70 mL/min (70-130); Calcium 8.5 mg/dL (7.8-10.44); Carbon Dioxide 22 mmol/L (23-31); Chloride 94 mmol/L (98-107); Estimated GFR 92; Glucose 102 mg/dL (83-110); Potassium 3.9 mmol/L (3.5-5.1); Sodium 124 mmol/L (136-145)
[2023-05-09] MEDS: Levothyroxine Sodium 50 MCG TAB PO SCH (05:37)
[2023-05-09] MEDS: Metoprolol Tartrate 25 MG TAB PO SCH ×2 (08:20→21:04)
[2023-05-09] MEDS: Calcium Carbonate 600 MG TAB PO SCH (08:20)
[2023-05-09] MEDS: Saccharomyces boulardii 250 MG CAP PO SCH (08:20)
[2023-05-09] MEDS: Apixaban 2.5 MG TAB PO SCH ×2 (08:20→21:03)
[2023-05-09] MEDS: Famotidine 20 MG TAB PO SCH ×2 (08:21→21:03)
[2023-05-09] MEDS: Amlodipine 5 MG TAB PO SCH (08:21)
[2023-05-09] MEDS: Zinc Sulfate 220 MG CAP PO SCH (08:21)
[2023-05-09] MEDS: Polyethylene Glycol 3350 17 GM Packet PO SCH (08:21)
[2023-05-09] MEDS: Vitamin E 400 UNITS CAP PO SCH (08:21)
[2023-05-09] MEDS: Sodium Chloride 1 GM TAB PO SCH ×2 (17:33→21:03)
[2023-05-09] MEDS: Pentoxifylline 400 MG ER.TAB PO SCH (21:03)
[2023-05-09] MEDS: Atorvastatin Calcium 20 MG TAB PO SCH (21:03)
[2023-05-09] MEDS: predniSONE 1 MG TAB PO SCH (21:04)
[2023-05-09] MEDS: Montelukast Sodium 10 mg Tablet PO SCH (21:04)
[2023-05-10 04:27] LABS: #Basophils 0.1 thou/uL (0.0-0.2); #Eosinphils 0.3 thou/uL (0.0-0.7); #Monocytes 0.9 thou/uL (0.11-0.59); #Neutrophils 3.4 thou/uL (1.40-6.50); %Basophils 0.9 % (0.0-1.0); %Eosinophils 4.8 % (0.0-10.0); %Lymphocytes 15.2 % (21.0-51.0); %Monocytes 16.8 % (0.0-10.0); %Neutrophils 61.9 % (42.0-75.0); Hematocrit 29.2 % (36.0-47.0); Hemoglobin 9.9 g/dL (12.0-16.0); Mean Corpuscular HGB CONC 33.9 g/dL (32.0-36.0); Mean Corpuscular Hemoglobin 31.7 pg (27.0-31.0); Mean Corpuscular Volume 93.6 fl (78.0-98.0); Platelet Count 149 10x3/uL (130-400); RBC Distribution Width 13.3 % (11.5-14.5); Red Blood Cell (RBC) Count 3.12 mill/uL (4.20-5.40); White Blood Cell (WBC) Count 5.5 10x3/uL (4.8-10.8)
[2023-05-10 05:44] LABS: Anion Gap 11 mmol/L (10-20); BUN (Urea Nitrogen) 15 mg/dL (9.8-20.1); Calc. Creatinine Clearance 67 mL/min (70-130); Calcium 8.9 mg/dL (7.8-10.44); Carbon Dioxide 24 mmol/L (23-31); Chloride 95 mmol/L (98-107); Estimated GFR 91; Glucose 100 mg/dL (83-110); Potassium 4.3 mmol/L (3.5-5.1); Sodium 126 mmol/L (136-145)
[2023-05-10] MEDS: Levothyroxine Sodium 50 MCG TAB PO SCH (06:02)
[2023-05-10] MEDS ORDERED: Cholecalciferol 1,000 UNITS (25 MCG) TAB PO SCH (09:00)
[2023-05-10] MEDS: Pentoxifylline 400 MG ER.TAB PO SCH ×2 (09:20→22:03)
[2023-05-10] MEDS: Famotidine 20 MG TAB PO SCH ×2 (09:20→22:03)
[2023-05-10] MEDS: Saccharomyces boulardii 250 MG CAP PO SCH (09:20)
[2023-05-10] MEDS: Polyethylene Glycol 3350 17 GM Packet PO SCH (09:20)
[2023-05-10] MEDS: Amlodipine 5 MG TAB PO SCH (09:20)
[2023-05-10] MEDS: Sodium Chloride 1 GM TAB PO SCH ×3 (09:20→22:02)
[2023-05-10] MEDS: Vitamin E 400 UNITS CAP PO SCH (09:20)
[2023-05-10] MEDS: Apixaban 2.5 MG TAB PO SCH ×2 (09:20→22:03)
[2023-05-10] MEDS: Zinc Sulfate 220 MG CAP PO SCH (09:20)
[2023-05-10] MEDS: Calcium Carbonate 600 MG TAB PO SCH (09:20)
[2023-05-10] MEDS: Metoprolol Tartrate 25 MG TAB PO SCH ×2 (09:20→22:03)
[2023-05-10] MEDS: predniSONE 1 MG TAB PO SCH (22:03)
[2023-05-10] MEDS: Atorvastatin Calcium 20 MG TAB PO SCH (22:03)
[2023-05-10] MEDS: Montelukast Sodium 10 mg Tablet PO SCH (22:03)
[2023-05-11 00:15] VITALS: BP 131/61; TEMP 98.4
== END 2023-05-11 01:05 | disposition swing bed (61) | DRG 640 ==
LOC: INTOOBSV 17:46 → 2NO 17:46 → OBSVTOIN 05-04 10:46
PROVIDERS: ADMIT Family Medicine; ATTEND Internal Medicine
DX: E87.1 Hypo-osmolality and hyponatremia (principal); G93.41 Metabolic encephalopathy; R53.81 Other malaise; R53.1 Weakness; I10 Essential (primary) hypertension; E03.9 Hypothyroidism, unspecified; E78.5 Hyperlipidemia, unspecified; R00.1 Bradycardia, unspecified; I48.0 Paroxysmal atrial fibrillation; R62.7 Adult failure to thrive; S82.839D Other fracture of upper and lower end of unspecified fibula, subsequent encounter for closed fracture with routine healing; Z88.8 Allergy status to other drugs, medicaments and biological substances; Z98.890 Other specified postprocedural states; Z90.89 Acquired absence of other organs; Z88.5 Allergy status to narcotic agent; Z91.041 Radiographic dye allergy status; Z88.2 Allergy status to sulfonamides; Z79.890 Hormone replacement therapy; Z79.899 Other long term (current) drug therapy; Z79.51 Long term (current) use of inhaled steroids
CPT/HCPCS: 36415; 80048; 80053; 83935; 84300; 85025; G0378; J7030; J7050; J7512